=== PATIENT | male | born 1970 | race Caucasian/White ===

== ENCOUNTER 2017-02-17 13:34 | Inpatient (IN) | payer OTHER ==
[~2017-02-17] VITALS: Ht 195.6 cm; Wt 150.9 kg
--- NOTE | 2017-02-17 13:50 | NUR ---
dr mckeon in with pt
[2017-02-17] MEDS ORDERED: ONDANSETRON 4mg/2ml INJECTION IV ONE (14:00)
[2017-02-17] MEDS ORDERED: NORMAL SALINE 1,000 ML IV ONE (14:00)
[2017-02-17] MEDS ORDERED: HYDROMORPHONE 2mg/ml INJECTION IV ONE (14:00)
--- NOTE | 2017-02-17 14:00 | ERPDOC ---
Departure Disposition Decision Date: February 17, 2017 Disposition Decision Time: 15:22 Disposition: 02 TO [facility] Impression Impression Impression: Primary Impression: Acute pancreatitis Pancreatitis type: unspecified pancreatitis type Acute pancreatitis complication: no infection or necrosis Qualified Codes: K85.90 - Acute pancreatitis without necrosis or infection, unspecified Severity: Moderate Condition: Stable Seen By: Physician only Referrals: KRYSTYNA JOHNSON DO (Family) Problems/Meds/Labs Reviewed?: Yes Medications reviewed and manag: Yes Follow up care ordered?: Yes Mental Status: Alert, Oriented HPI - Abdominal Pain General Chief Complaint: Abdominal Pain Stated Complaint: PANCREATIS Time Seen by Provider: 13:46 Source: patient, family History/Exam Limitations: no limitations HPI - Abdominal Pain Initial Comments Patient is a 46-year-old male presents emergency room for evaluation of a 2 day history of abdominal pain. Patient's pain is slowly been worsening, worse and especially last night after eating however patient's been having no fevers no chills nausea no vomiting. Patient did go to primary medical physician's office today who sent him in for laboratories patient was found have an elevated lipase at 578, white count 14.3 with shift at 77% however bands normal at 2%. Due to his symptomatology primary care medic physician recommended patient go to the ER for evaluation of pancreatitis versus gallstone pancreatitis versus diverticulitis. Occurred At: home Onset: Rapid Duration: other (2 days) Pain Scale: Now & Worst: 8/10 Location: epigastric, periumbilical Radiation: no radiation Allergies: Coded Allergies: codeine (Verified Adverse Reaction, Unknown, vomiting, 02/17/17) Past History Past Medical History Metabolic: diabetes, DENIES: hypercholesterolemia, hypertension, hypothyroidism ENMT: DENIES: allergies Cardiac: DENIES: A-fib, CAD, CHF Respiratory: DENIES: COPD, asthma GI: DENIES: GERD, constipation, ulcers Male: DENIES: UTI Hematologic: DENIES: anemia Surgical History General: DENIES: appendix, gallbladder, hernia Social History Smoking Status: Never smoker Substance Use Type: does not use Alcohol Intake: occasionally (once every 2-3 months) Marital Status: Sexuality: female partner Housing: house Review of Systems Constitutional Constitutional: appetite decrease, DENIES: chills, dizziness, fever, weakness Eyes Vision: DENIES: double vision, loss of visual strickland ENMT Sinuses: DENIES: congestion, rhinorrhea Mouth/Throat: DENIES: scratchy throat, sore throat Cardiovascular Cardiac: DENIES: chest pain, dyspnea on exertion Pulmonary Respiratory: DENIES: cough, dyspnea, sputum, tachypnea GI Upper Abdomen: nausea, pain, DENIES: vomiting Lower Abdomen: pain, DENIES: constipation, diarrhea Musculoskeletal General: DENIES: cramps, pain, weakness Integumentary Skin: DENIES: color change, itching, rash Endocrine Endocrine: DENIES: heat/cold intolerance Hematologic/Lymphatic Hematologic/Lymphatic: DENIES: anemia Physical Exam General General Nourishment: well nourished, well developed General Body Habitus: well groomed Vitals and Pain First Documented Vital Signs Date Time Temp Pulse Resp B/P Pulse Ox O2 Delivery O2 Flow Rate FiO2 02/17/17 13:40 98.1 88 20 128/66 98 Weight: Kilograms: Height (feet): Height (inches): Triage Pain Scale: RN VS reviewed by Provider: Yes Eyes (brief) Eyes Brief: found: PERRL ENMT (brief) ENMT Brief: FOUND: mucosa moist, normal dentition, NOT FOUND: nasal erythema, pharnyx erythema, tonsillar deviation Neck (brief) Neck: NOT FOUND: adenopathy, spasm, tenderness Respiratory (brief) Respiratory: FOUND: clear all strickland, equal bilaterally, NOT FOUND: rales, wheezes Cardiovascular (brief) Cardiac: FOUND: regular rate, regular rhythm Capillary Refill: <2 sec Abdomen Palpation: FOUND: soft, tender (epigastric and periumbilical tenderness), NOT FOUND: Obturator sign, Psoas sign, hepatomegaly, involuntary guarding, pulsating mass, rebound, splenomegaly, voluntary guarding Auscultation: FOUND: normoactive Lymphatic (brief) Lymphatic Brief: NOT FOUND: adenopathy Musculoskeletal (brief) Musculoskeletal Brief: NOT FOUND: spasm, tenderness Integumentary (brief) Integumentary Brief: FOUND: dry, pink, warm, NOT FOUND: rash Neurologic (brief) Neurological Brief: FOUND: CN w/o gross def to obs, motor-no gross deficits, sensory-no gross deficits Psychiatric (brief) Psychiatric Brief: FOUND: alert, oriented Differential Diagnoses Considering: Appendicitis, Aortic Dissection, Biliary Colic, Bowel Obstruction , Cholecystitis, Constipation, Diverticulitis, Gastroenteritis, GERD, Hepatitis , Hernia, IBS, Ileus, Pancreatitis, Pneumonia, Pyelonephritis, Renal Colic, Ulcer, Ulcerative Colitis, UTI, Volvulus Progress Results/Orders Orders Procedure Category Date Status Time Iv Lock (Ed Only) EDM 02/17/17 Transmitted 13:46 Normal Saline (Normal PHA 02/17/17 Complete Saline Iv) 14:00 Hydromorphone PHA 02/17/17 Complete (Dilaudid) 14:00 Ondansetron Inj PHA 02/17/17 Complete (Zofran) 14:00 Ua, Dip Wreflex LAB 02/17/17 Logged Microsc & Dock Hand 13:56 Ct Abd/Pelvis CT 02/17/17 Resulted W/Contrast Only 13:58 Iohexol (Omnipaque) PHA 02/17/17 Complete 14:11 Normal Saline (Ns) PHA 02/17/17 Complete 14:11 Saline Flush (Iv PHA 02/17/17 Complete Flush) 14:11 Place In Facility: ED ADM 02/17/17 Transmitted 15:21 Medications Current ED Medications Sodium Chloride (Normal Saline IV) 1,000 ml @ 999 mls/hr Q1H1M ONCE IV Last administered on 02/17/17 14:12; Start 02/17/17 at 14:00; Stop 02/17/17 at 15:00; Status DC Hydromorphone HCl (Dilaudid) 0.5 mg O ONCE IV Last administered on 02/17/17 14 :12; Start 02/17/17 at 14:00; Stop 02/17/17 at 14:01; Status DC Ondansetron HCl (Zofran) 4 mg O ONCE IV Last administered on 02/17/17 14:09; Start 02/17/17 at 14:00; Stop 02/17/17 at 14:01; Status DC Iohexol 1 bottle 1 bottle STK-MED ONCE .ROUTE ; Start 02/17/17 at 14:11; Stop 02/17/17 at 14:12; Status DC Sodium Chloride (NS) 100 ml @ As Directed STK-MED ONCE .ROUTE ; Start 02/17/17 at 14:11; Stop 02/17/17 at 14:12; Status DC Sodium Chloride (Iv Flush) 10 ml STK-MED ONCE .ROUTE ; Start 02/17/17 at 14:11; Stop 5/3/17 at 14:12; Status DC Progress Progress Discuss case with hospitalist service and they will admit for acute pancreatitis CT CT : CT: Abd/Pelvis IV contrast Interpretation: Abnormal, Discussed w/ Radiologist (acute pancreatitis with no signs of necrosis or pseudocyst, gallbladder normal), Reviewed Written Report CALLIE SAVAGE MD February 17, 2017 14:00
[2017-02-17] MEDS ORDERED: NORMAL SALINE 100 ML ONE (14:11)
[2017-02-17] MEDS ORDERED: IOHEXOL 300 MG/ML 100ml INJECTION ONE (14:11)
[2017-02-17] MEDS ORDERED: SALINE FLUSH 10ml SYRINGE ONE (14:11)
--- NOTE | 2017-02-17 15:08 | DI ---
Indication: ITS.REASON: abd pain, Elevated lip, T Temo PROCEDURE: CT ABD/PELVIS W/CONTRAST ONLY: Encounter: Initial Comparison: None Technique: Axial CT images were performed through the abdomen and pelvis after the administration of intravenous contrast. Coronal and sagittal two-dimensional reformats. Automated Exposure Control and Iterative Reconstruction dose reducing techniques were utilized. Contrast: Omnipaque 300 99 mL Findings: The lung bases are clear. Liver is diffusely fatty infiltrated without enhancing mass or bile duct dilatation. The gallbladder appears normal. The spleen is within normal limits. There is inflammation surrounding the pancreatic body and tail with fat stranding present. No focal fluid collection to suggest a pseudocyst. No nonenhancing pancreatic tissue to suggest pancreatic necrosis. Right adrenal calcifications could be due to old trauma, infection or hemorrhage. The left adrenal gland is normal. Kidneys are normal. No abdominal or pelvic lymphadenopathy. Bladder appears normal. Prostate and rectum are unremarkable. No free fluid. No evidence of a bowel obstruction. The appendix is normal. Bone windows are normal for age. Impression: 1. Acute pancreatitis. 2. Hepatic steatosis. .
--- NOTE | 2017-02-17 15:48 | NUR ---
REPORT TO BRUCE BRONW ON [facility]. ROOM 164
--- NOTE | 2017-02-17 15:50 | NUR ---
PHYSICIAN DR VALLES IN WITH PT
[2017-02-17 15:56] LABS: BLOOD, URINE 1+ (NEGATIVE); COLOR,URINE YELLOW (YELLOW); LEUKOCYTE ESTERASE ,URINE NEGATIVE (NEGATIVE); NITRITE,URINE NEGATIVE (NEGATIVE); UROBILINOGEN,URINE 0.2 EU/DL (NORMAL)
[2017-02-17 16:06] LABS: WBC,URINE NONE SEEN /HPF (0-5)
[2017-02-17 16:07] LABS: BACTERIA,URINE NONE SEEN (NEGATIVE); MUCUS,URINE PRESENT; SQUAMOUS EPITHELIAL CELL,UR 0-5
[2017-02-17 16:09] VITALS: Ht 195.6 cm; Wt 150.9 kg
[2017-02-17 16:12] VITALS: BP 147/86; PULSE 86; RESP 18; TEMP 98.8; O2SAT 97
--- NOTE | 2017-02-17 16:58 | HPPDOC ---
SAY TAYLOR V ONE PIECE EXPANSION MAKER HAND 02/17/17 1655: HPI - Adult Date DATE: 02/17/17 TIME: 16:44 General Chief Complaint: Abdominal pain History of Present Illness Mr Perkins is a 46 yr old male who had a onset of abdominal pain 2 days ago. Pain has continued to worsen and was especially worse last night following eating pizza. He presented to his primary care provider, Dr. Rainey today for acute evaluation. At that time he was sent to [facility] for outpatient laboratory studies. He was found to be elevated at 14.8, hemoglobin 15.9, hematocrit 45.3, platelet count 222, neutrophils 77% with 2% bandemia. Sodium was found to be normal at 138, potassium 4.1, BUNs 10, creatinine 0.8. Lipase is elevated at 578. Patient then checked into the emergency room for further acute evaluation. A urinalysis was obtained showing 2+ protein, 2+ glucose, 3+ ketones, 1+ blood, 1+ bilirubin . A CT scan of the abdomen was obtained showing acute pancreatitis with hepatic steatosis. Patient was given IV fluids, and Dilaudid and Zofran for pain control. The hospitalist services were consulted and accepted patient for outpatient admission for further evaluation and treatment. Is expected that his stay will be less than 2 overnights. Past Medical History Past Medical History Type 2 DM Surgical History Patient's Surgical History: Tonsil and adenoidectomy Right ankle tendon reconstruction Current Medications Home Meds Reported Medications Fenofibrate (Fenofibrate) 160 Mg Tablet, 160 MG PO DAILY 02/17/17 Insulin Degludec (Tresiba Flextouch U-200) 200 Unit/1 Ml Insuln.pen, 42 SQ DAILY 02/17/17 Losartan Potassium (Losartan Potassium) 25 Mg Tablet, 25 MG PO DAILY 02/17/17 Atorvastatin Calcium (Atorvastatin Calcium) 20 Mg Tablet, 1 TAB PO HS, TAB 02/17/17 Liraglutide (Victoza 2-Roosevelt) 18 Mg/Syringe Inj, 1.8 MG SQ DAILY 02/17/17 Metformin HCl (Metformin HCl ER) 500 Mg Tab.er.24, 2 TAB PO BID, #90 TAB 3 Refills 02/17/17 Allergies: Coded Allergies: codeine (Verified Adverse Reaction, Unknown, vomiting, 02/17/17) Family History Family History: Father alive and well mother-diabetes Social History Smoking Status: Never smoker Substance Use Type: does not use Alcohol Intake: occasionally (once every 2-3 months) Marital Status: Sexuality: female partner Housing: house Advance Directives: No DPOA for Healthcare Only Social History Comments Primary care provider, Dr. Lee Review of Systems GI Upper Abdomen: pain (generalized abdominal pain) All Other Systems All Other Systems: Reviewed (remainder of 10-point ROS Neg.) Physical Exam General General Nourishment: well nourished, well developed Vital Signs Vital Signs Date Time Temp Pulse Resp B/P Pulse Ox O2 Delivery O2 Flow Rate FiO2 02/17/17 16:12 98.8 86 18 147/86 97 Room Air Height (Feet): 6 Height (Inches): 5.00 Eyes Brief: FOUND: EOMI, PERRL ENMT Brief: FOUND: mucosa moist, normal dentition, NOT FOUND: pharnyx erythema Respiratory Brief: FOUND: clear all strickland, equal bilaterally, NOT FOUND: wheezes Cardiovascular (brief) Cardiac Brief: FOUND: regular rate, regular rhythm, NOT FOUND: murmur, pedal edema Abdomen (brief) Abdominal Brief: FOUND: soft, tender (generalized), NOT FOUND: BS normo active x4 (hypoactive) Integumentary (brief) Integumentary Brief: FOUND: dry, pink, warm Neurologic (brief) Neurological Brief: FOUND: cranial 2-12 intact Neurologic RN Documented GCS Eye Opening: Verbal: Motor: Total: Psychiatric (brief) FOUND: alert, attentive, normal affect, oriented Laboratory Laboratory Tests Test 02/17/17 15:33 Urine Collection Type Voided-not cc-midstr Urine Color Yellow Urine Turbidity Clear Urine pH 5.0 Urine Specific Thurston 1.028 Urine Protein 2+ Urine Glucose (UA) 2+ Urine Ketones 3+ Urine Blood 1+ Urine Nitrite Negative Urine Bilirubin 1+ Urine Urobilinogen 0.2EU/DL Urine Leukocyte Esterase Negative Urine RBC 1-3/HPF Urine WBC None seen/HPF Urine Squamous Epithelial Cells 0-5 Urine Bacteria None seen Urine Mucus Present Urine Culture Indicated Cult not indicated Assessment & Plan Problems: (1) Acute pancreatitis Status: Acute Qualifiers: Pancreatitis type: unspecified pancreatitis type Acute pancreatitis complication: no infection or necrosis Qualified Codes: K85.90 - Acute pancreatitis without necrosis or infection, unspecified (2) Leukocytosis Status: Acute Assessment & Plan: Present on admission (3) Type 2 diabetes mellitus Status: Chronic Plan/Intensity of Service Admit patient as a outpatient status under the care of Dr Valles on-call hospitalist Will keep patient NPO overnight for gut rest Will obtain Abdominal Ultrasound tomorrow morning He received 1 liter of normal saline while in the ER. Continue with Normal saline at 100 ml/hr for gentle hydration Zofran as needed for nausea Dilaudid as needed for pain control Will monitor Accuchecks 4 times a day. Will start Novalog Sliding scale insulin for hyperglycemia Home medications will need to be evaluated SCDs to bilateral lower ext for DVT prophylaxis He may be up in the room with assistance. Recheck CBC, Lipase and BMP tomorrow morning to follow blood counts renal function and electrolytes Will discuss further plan of care with attending At time of discharge medical care will return to primary care provider, Dr. Lee DVT Prophylaxis: SCD'S Code Status Full Code, unverified Hospital Course Summary Disclaimer The hospital course summary below is not to be considered part of the above Progress Note. Hospital Course Summary Admit patient as a outpatient status under the care of Dr Valles on-call hospitalist Will keep patient NPO overnight for gut rest Will obtain Abdominal Ultrasound tomorrow morning He received 1 liter of normal saline while in the ER. Continue with Normal saline at 100 ml/hr for gentle hydration Zofran as needed for nausea Dilaudid as needed for pain control Will monitor Accuchecks 4 times a day. Will start Novalog Sliding scale insulin for hyperglycemia Home medications will need to be evaluated SCDs to bilateral lower ext for DVT prophylaxis He may be up in the room with assistance. Recheck CBC, Lipase and BMP tomorrow morning to follow blood counts renal function and electrolytes Will discuss further plan of care with attending At time of discharge medical care will return to primary care provider, MARIJA Cota MD 02/17/17 1723: Past Medical History Current Medications Home Meds Reported Medications Fenofibrate (Fenofibrate) 160 Mg Tablet, 160 MG PO DAILY 02/17/17 Insulin Degludec (Tresiba Flextouch U-200) 200 Unit/1 Ml Insuln.pen, 42 SQ DAILY 02/17/17 Losartan Potassium (Losartan Potassium) 25 Mg Tablet, 25 MG PO DAILY 02/17/17 Atorvastatin Calcium (Atorvastatin Calcium) 20 Mg Tablet, 1 TAB PO HS, TAB 02/17/17 Liraglutide (Victoza 2-Roosevelt) 18 Mg/Syringe Inj, 1.8 MG SQ DAILY 02/17/17 Metformin HCl (Metformin HCl ER) 500 Mg Tab.er.24, 2 TAB PO BID, #90 TAB 3 Refills 02/17/17 Allergies: Coded Allergies: codeine (Verified Adverse Reaction, Unknown, vomiting, 02/17/17) Assessment & Plan Assessment Patient seen and examined. Agree with above H+Conchita. SAY TAYLOR APRN February 17, 2017 16:55 MARIJA VALLES MD February 17, 2017 17:23
[2017-02-17] MEDS ORDERED: ONDANSETRON 4mg/2ml INJECTION IV PRN (17:00)
[2017-02-17] MEDS ORDERED: KETOROLAC 30mg/ml INJECTION IV ONE (17:00)
[2017-02-17] MEDS: NORMAL SALINE 1,000 ML IV SCH (17:15)
[2017-02-17] MEDS ORDERED: METF-462 PO (17:16)
[2017-02-17] MEDS ORDERED: LOSA25TA34 PO (17:16)
[2017-02-17] MEDS ORDERED: LIRA0.6P SQ (17:16)
[2017-02-17] MEDS ORDERED: INSU200I4 SQ (17:16)
[2017-02-17] MEDS ORDERED: ATOR20TA59 PO (17:16)
[2017-02-17] MEDS ORDERED: FENO160T12 PO (17:16)
[2017-02-17] MEDS ORDERED: DEXTROSE 50% SYRINGE 50ml (Eq. 1 AMP) IV PRN (17:30)
[2017-02-17 17:45] VITALS: TEMP 99.1
[2017-02-17] MEDS: INSULIN ASPART 100 UNIT/ML SQ PRN ×2 (17:59→22:50)
--- NOTE | 2017-02-17 18:44 | NUR ---
status Medicated with Toradol 30 mg field applications specialist which he stated had helped. remains npo ns @ 100 cc hr,
[2017-02-17 20:45] VITALS: TEMP 98.6
[2017-02-17] MEDS: HYDROMORPHONE 2mg/ml INJECTION IV PRN (22:25)
[2017-02-18] VITALS: BP 139/78; PULSE 82; RESP 20; TEMP 100.6; O2SAT 96
[2017-02-18 00:30] VITALS: BP 131/69; PULSE 79; RESP 16; TEMP 98.4; O2SAT 95
[2017-02-18] MEDS: NORMAL SALINE 1,000 ML IV SCH ×2 (03:05→13:47)
--- NOTE | 2017-02-18 03:07 | NUR ---
O2 Pt c/o QUEVEDO, wears cpap at home, O2 @ 2LNC applied per pt request. Will monitor.
[2017-02-18] MEDS: HYDROMORPHONE 2mg/ml INJECTION IV PRN ×5 (03:52→19:55)
[2017-02-18 05:35] LABS: BASOPHILS % (AUTO) 0.2 % (0-2); EOSINOPHILS % (AUTO) 0.2 % (0-4); HCT - HEMATOCRIT 42.7 % (41-53); HGB - HEMOGLOBIN 14.3 GM/DL (13.5-17.5); IMMATURE GRANULOCYTE # (AUTO) 0.05 T/MM3 (0.00-0.03); IMMATURE GRANULOCYTE % (AUTO) 0.4 % (0.0-0.5); LYMPHOCYTES # (AUTO) 1.2 T/MM3 (1-4.8); LYMPHOCYTES % (AUTO) 9.2 % (23-45); MEAN CORPUSCULAR HGB 29.9 UUG (26-34); MEAN CORPUSCULAR HGB CONC(MCHC 33.5 GM/DL (31-37); MEAN CORPUSCULAR VOLUME 89.1 UM3 (80-100); MEAN PLATELET VOLUME 10.4 UM3 (9.4-12.4); MONOCYTES # (AUTO) 0.9 T/MM3 (0-0.8); MONOCYTES % (AUTO) 7.1 % (0-9.0); NEUTROPHILS #(AUTO)-ABSOLUTE 11.1 T/MM3 (1.8-7.7); NEUTROPHILS % (AUTO) 82.9 % (33-66); RED BLOOD COUNT 4.79 M/MM3 (4.50-5.90); WBC - WHITE BLOOD COUNT 13.3 T/MM3 (4.5-11.0)
--- NOTE | 2017-02-18 05:45 | NUR ---
Status Pt awake most of the night. Dilaudid for abd pain x2. Rates pain 2-3 but appears to be much worse, educated on pain scale- states understanding. SBA to BR, NPO, NS infusing @ 100ml/hr. Swabs for comfort/oral care. SCD's in place. Awaiting abd ultrasound this am. VSS on RA.
[2017-02-18 06:05] LABS: CALCIUM 8.3 MG/DL (8.4-10.2); CREATININE 0.8 MG/DL (0.8-1.5); POTASSIUM 4.7 MEQ/L (3.6-5)
[2017-02-18] MEDS: INSULIN ASPART 100 UNIT/ML SQ PRN ×4 (06:36→21:48)
[2017-02-18 07:50] VITALS: BP 138/87; PULSE 81; RESP 18; TEMP 97.7; O2SAT 99
--- NOTE | 2017-02-18 08:54 | PNPDOC ---
Subjective Date DATE: 02/18/17 TIME: 08:48 Subjective Patient states that he has continued pain in the abdomen overnight. A few episodes of nausea relieved with antiemetics. No diarrhea. States he would like to try ice chips. Objective Vital Signs Vital signs Vital Signs Date Time Temp Pulse Resp B/P Pulse Ox O2 Delivery O2 Flow Rate FiO2 02/18/17 07:53 20 02/18/17 07:50 97.7 81 138/87 99 Room Air Height (Feet): 6 Height (Inches): 5.00 Weight (Kilograms): 151.000 General Comments General -AAO 3; NAD CV - RRR Lungs - CTAB Abdomen - diffusely tender Extremities - no E/C/C Neuro--nonfocal Laboratory Laboratory Laboratory Tests 02/17/17 12:14 02/18/17 04:52 Laboratory Tests 02/18/17 04:52 Assessment & Plan Problems: (1) Acute pancreatitis Status: Acute Qualifiers: Pancreatitis type: unspecified pancreatitis type Acute pancreatitis complication: no infection or necrosis Qualified Codes: K85.90 - Acute pancreatitis without necrosis or infection, unspecified Assessment & Plan: Clinically unchanged. Lipase has skyrocketed. We will continue with antibiotics and pain medication. Will continue IV fluids. Very slowly advance diet as tolerated. (2) Leukocytosis Status: Acute Assessment & Plan: Improving. Likely secondary to acute pancreatitis. (3) Type 2 diabetes mellitus Status: Chronic Assessment & Plan: Uncontrolled secondary to medication noncompliance. Continue sliding scale. Plan/Intensity of Service Code Status Full Code, unverified Hospital Course Summary Disclaimer The hospital course summary below is not to be considered part of the above Progress Note. Hospital Course Summary MARIJA VALLES MD February 18, 2017 08:51
--- NOTE | 2017-02-18 08:57 | DI ---
Indication: ITS.REASON: abd pain PROCEDURE: US ABDOMEN LIMITED: Encounter: Initial Comparison: CT abdomen and pelvis dated February 17, 2017 Technique: Grayscale and color Doppler sonographic imaging of the right upper quadrant of the abdomen was performed. Findings: Hepatic parenchyma is echogenic and sonographically dense without evidence for focal mass. The gallbladder is normal. There is no wall thickening, pericholecystic fluid, sonographic Barrera's sign or cholelithiasis. Both the intra and extrahepatic biliary system are of normal caliber with the common duct measuring 3 mm in dimension. Pancreas could not be seen due to shadowing bowel gas. The right kidney is present without collecting system dilatation. The right kidney measures 12.7 cm in length. Impression: Normal gallbladder. Hepatic steatosis. .
--- NOTE | 2017-02-18 10:40 | NUR ---
CHANDANA CM VISITED PT AND SPOUSE. CM EXPLAINED ROLE AND PROVIDED CONTACT INFORMATION. PT PLANS [place] [facility] [place] DENIES NEEDS. PT IS AWARE TO CONTACT CM IF NEEDS ARISE.
--- NOTE | 2017-02-18 14:09 | NUR ---
DM Screen Diet: NPO Based on Isiah Xiong, with an Activity factor or 1.3 and an injury factory of 1.0 calorie needs are ~2600 When diet advances, international logistics analyst recommends advancing diet to CC 2600 Patient states he's had diabetes for 3 years and the only thing he does to manage it is take his diabetes meds. Patient states it's hard to eat a low-carb diet with his busy work schedule and home life. He states he doesn't test his BS because of his disdain for needles and cost. engineer internship spent most of the visit speaking with the patient's who also has diabetes. The patient's states she and the patient know how to manage blood sugars, but simply aren't committed at this point in time. She does feel like this particular hospital visit serves as a "wake-up" call and motivation to move forward with healthy behaviors that are conducive to successful diabetes management. Patient and felt they didn't need any further diabetes education. Cardiopulmonary Technologist Chief left "Healthy Eating 1,2,3" hand-out with patient and . RD contact information was provided. RD Available @ [phone] Addendum: 02/18/17 at [address] Student charting reviewed by Toll Service Observer.
[2017-02-18 16:02] VITALS: BP 116/75; PULSE 85; RESP 18; TEMP 96.1; O2SAT 97
[2017-02-18 16:48] VITALS: PULSE 85; RESP 18; O2SAT 97
--- NOTE | 2017-02-18 18:23 | NUR ---
shift status Medicated x2 for co of abd pain which has moved to lower abd. ss insulin given for bgms. taking ice chips very well without n/v lab results reviewed with pt and pt education given about pancreatitis and causes of it .States it was a wake up call re self care .urine still is light julio colored. continue to observe did pass a little flatus,
--- NOTE | 2017-02-18 19:55 | NUR ---
PAIN: PT REQUESTED DILAUDID UPPER ABDOMINAL PAIN. WILL CONTINUE TO MONITOR.
[2017-02-19 00:02] VITALS: BP 139/78; PULSE 82; RESP 20; TEMP 100.6; O2SAT 98
--- NOTE | 2017-02-19 00:27 | NUR ---
FEVER: MIDNIGHT VITALS TAKEN, PT'S TEMP WAS 100.6. PT NPO, NO PRN TYLENOL. SENT TIGER TEXT, REC'D CALL BACK FROM DR. GREGORY. DOCTOR ORDERING TYLENOL, PT HAS BEEN ON CHIPS AND MOVING TO CLEAR LIQUIDS IN THE MORNING; PT SAID HE WAITS SOMETIMES FOR ICE TO MELT SO THAT HE CAN DRINK THE LIQUID (KEEPS MELTED CHIPS DOWN, NO EMESIS OR DISCOMFORT). WILL ADMINISTER TYLENOL (SEE EMAR).
[2017-02-19] MEDS: NORMAL SALINE 1,000 ML IV SCH ×4 (00:53→22:26)
--- NOTE | 2017-02-19 01:00 | NUR ---
FEVER: AFTER RECEIVING VERBAL ORDER FOR TYLENOL AND PUTTING IN VERBAL PRN ORDER FROM DR. GREGORY, I TOOK PT'S TEMPERATURE. PT'S TEMP WAS NOW 98.3 F. DID NOT ADMINISTER TYLENOL.
[2017-02-19] MEDS ORDERED: ACETAMINOPHEN 500 MG TABLET PO PRN (01:15)
[2017-02-19 01:22] VITALS: TEMP 98.3
[2017-02-19] MEDS: HYDROMORPHONE 2mg/ml INJECTION IV PRN ×3 (01:27→17:17)
--- NOTE | 2017-02-19 01:30 | NUR ---
PAIN: PT REQUESTED DILAUDID ABDOMINAL PAIN, ADMINISTERED DILAUDID 0.5 MG. WILL CONTINUE TO MONITOR.
--- NOTE | 2017-02-19 04:45 | NUR ---
SHIFT STATUS: PT SLEPT WELL DURING THE NIGHT, IS FRIENDLY AND COOPERATIVE, AND LIKES HIS ROOM COLD AND DARK WHILE SLEEPING; PT IS NPO, EXCEPT FOR CHIPS; MEDICATED (DILAUDID) 2X FOR ABDOMINAL PAIN, WHICH MOVED TO LOWER ABDOMEN; PT DENIES SOA, CHEST PAIN, OR N/V; PT IS UP AT RADHA; FLUIDS RUNNING (NORMAL SALINE); PT BURPS OFTEN; HAD A FEVER AT MIDNIGHT WHEN VITALS WERE TAKEN (SEE PREVIOUS NURSE NOTES). CALL LIGHT WITHIN REACH, HOURLY ROUNDING.
[2017-02-19 05:32] LABS: HCT - HEMATOCRIT 41.2 % (41-53); HGB - HEMOGLOBIN 13.5 GM/DL (13.5-17.5); MEAN CORPUSCULAR HGB 29.3 UUG (26-34); MEAN CORPUSCULAR HGB CONC(MCHC 32.8 GM/DL (31-37); MEAN CORPUSCULAR VOLUME 89.6 UM3 (80-100); WBC - WHITE BLOOD COUNT 14.3 T/MM3 (4.5-11.0)
[2017-02-19 05:40] LABS: ANION GAP 23 MEQ/L (5-15); BUN/CREATININE RATIO 20 RATIO (6-26); CALCIUM 9.6 MG/DL (8.4-10.2); CHLORIDE 106 MEQ/L (98-107); CO2 - CARBON DIOXIDE 11 MEQ/L (22-30); CREATININE 0.9 MG/DL (0.8-1.5); GLOMERULAR FILTRATION RATE 91; GLUCOSE 299 MG/DL (75-110); MAGNESIUM 2.2 MG/DL (1.6-2.3); POTASSIUM 4.3 MEQ/L (3.6-5); SODIUM 140 MEQ/L (134-144)
[2017-02-19 06:00] LABS: LIPASE 696 U/L (23-300)
[2017-02-19] MEDS: INSULIN ASPART 100 UNIT/ML SQ PRN ×3 (06:06→17:14)
[2017-02-19 06:27] LABS: BAND NEUTROPHILS # 0.4 T/MM3; LYMPHOCYTES # (MANUAL) 1.3 T/MM3 (1-4.8); NEUTROPHILS #(MANUAL)-ABSOLUTE 11.6 T/MM3 (1.8-7.7); TOTAL CELLS COUNTED 100 %
[2017-02-19 06:28] LABS: POIKILOCYTOSIS 1+; TEAR DROP CELLS 1+
[2017-02-19 07:36] VITALS: BP 146/69; PULSE 70; RESP 18; TEMP 98.5; O2SAT 99
--- NOTE | 2017-02-19 11:22 | PNPDOC ---
Subjective Date DATE: 02/19/17 TIME: 11:18 Subjective No events overnight. Patient states he still experiences abdominal pain with minimal fluid intake. Hesitant to try more solid food. States pain is fairly well-controlled on current regimen. Objective Vital Signs Vital signs Vital Signs Date Time Temp Pulse Resp B/P Pulse Ox O2 Delivery O2 Flow Rate FiO2 02/19/17 07:36 98.5 70 18 146/69 99 Room Air Height (Feet): 6 Height (Inches): 5.00 Weight (Kilograms): 147.000 General Comments General--he is awake, alert, oriented 3, in no acute distress. HEENT--PERRLA; EOMI Neck.--Supple, no JVD, no bruits. Cardiovascular--regular rate and rhythm. Lungs--clear to auscultation bilaterally Abdomen--benign. Extremities--no edema, cyanosis or clubbing. Neurological--cranial nerves II through XII grossly intact Rectal--deferred. Genitourinary--deferred. Skin--no rashes Laboratory Laboratory Laboratory Tests 02/17/17 12:14 02/18/17 04:52 02/19/17 05:16 Laboratory Tests 02/18/17 04:52 02/19/17 05:16 Assessment & Plan Problems: (1) Acute pancreatitis Status: Acute Qualifiers: Pancreatitis type: unspecified pancreatitis type Acute pancreatitis complication: no infection or necrosis Qualified Codes: K85.90 - Acute pancreatitis without necrosis or infection, unspecified Assessment & Plan: Clinically improved. Lipase much improved. We will continue clear liquid diet for today and IV fluid resuscitation. Advance diet as tolerated starting tomorrow with hopeful discharge in the next 24-48 hours. (2) Leukocytosis Status: Acute Assessment & Plan: Improving. Likely secondary to acute pancreatitis. (3) Type 2 diabetes mellitus Status: Chronic Assessment & Plan: Uncontrolled secondary to medication noncompliance. Hemoglobin A1c greater than 12. Patient has been advised to start taking his medications as an outpatient as ordered. Continue sliding scale. Plan/Intensity of Service Code Status Full Code, unverified Hospital Course Summary Disclaimer The hospital course summary below is not to be considered part of the above Progress Note. Hospital Course Summary MARIJA VALLES MD February 19, 2017 11:21
--- NOTE | 2017-02-19 12:30 | NUR ---
Comfort Patient was given Dilaudid for abdominal pain/discomfort. Patient currently sleeping.
--- NOTE | 2017-02-19 13:14 | NUR ---
Glycemic control A1c: 12.6; Home insulin: Treshiba U-200, 42 units daily. Diet: Clear Liquid; Patient was NPO past two days, and was advanced to today r/t medical condition. It is unlikely that diet is contributing to his hyperglycemia. SS insulin was ordered 02/17. Basal insulin is ordered, per nsg.
[2017-02-19 15:55] VITALS: BP 141/74; PULSE 66; RESP 20; TEMP 98.2; O2SAT 99
--- NOTE | 2017-02-19 16:44 | NUR ---
Status Patient has complained of being tired today. Encouraged patient to turn on lights and get up to ambulate. Encouraged to walk in halls. Denies nausea. Tolerating clear liqs. Breathing comfortably on RA.
[2017-02-19 19:43] VITALS: BP 140/72; PULSE 66; RESP 18; TEMP 98.7; O2SAT 98
[2017-02-19] MEDS ORDERED: INSULIN GLARGINE 100 UNIT/ML SQ SCH (22:00)
[2017-02-20 00:19] VITALS: BP 124/65; PULSE 59; RESP 18; TEMP 99.5; O2SAT 97
[2017-02-20 05:48] LABS: MEAN CORPUSCULAR HGB 28.9 UUG (26-34); MEAN CORPUSCULAR HGB CONC(MCHC 32.4 GM/DL (31-37); MEAN CORPUSCULAR VOLUME 89.2 UM3 (80-100); MEAN PLATELET VOLUME 10.3 UM3 (9.4-12.4); RED BLOOD COUNT 4.15 M/MM3 (4.50-5.90); WBC - WHITE BLOOD COUNT 11.1 T/MM3 (4.5-11.0)
[2017-02-20 05:57] LABS: ANION GAP 18 MEQ/L (5-15); BUN/CREATININE RATIO 19 RATIO (6-26); CALCIUM 9.5 MG/DL (8.4-10.2); CHLORIDE 104 MEQ/L (98-107); CO2 - CARBON DIOXIDE 16 MEQ/L (22-30); CREATININE 0.8 MG/DL (0.8-1.5); GLOMERULAR FILTRATION RATE 105; GLUCOSE 264 MG/DL (75-110); LIPASE 278 U/L (23-300); MAGNESIUM 2.1 MG/DL (1.6-2.3); POTASSIUM 3.6 MEQ/L (3.6-5); SODIUM 138 MEQ/L (134-144)
[2017-02-20 06:17] LABS: BAND NEUTROPHILS # 1.3 T/MM3; EOSINOPHILS # (MANUAL) 0.6 T/MM3 (0-0.5); LYMPHOCYTES # (MANUAL) 1.2 T/MM3 (1-4.8); MONOCYTES # (MANUAL) 0.6 T/MM3 (0-0.8); NEUTROPHILS #(MANUAL)-ABSOLUTE 7.4 T/MM3 (1.8-7.7); TOTAL CELLS COUNTED 100 %
--- NOTE | 2017-02-20 07:22 | NUR ---
SUMMARY PT SLEPT WELL THIS SHIFT. ALERT AND ORIENTED X3. ABLE TO VOICE NEEDS TO THE STAFFS. DENIED ANY PAIN. PT STAYED IN THE ROOM ALL NIGHT. ENCOURAGED TO AMBULATE. HE SAID HE IS DOING FINE IN HIS ROOM. DIET ADVANCED THIS MORNING. UP AD RADHA IN ROOM TO THE BATHROOM.
[2017-02-20 07:31] VITALS: BP 140/68; PULSE 65; RESP 24; TEMP 97.9; O2SAT 99
[2017-02-20] MEDS ORDERED: INSULIN DEGLUDEC SQ SCH (09:00)
--- NOTE | 2017-02-20 10:47 | PD.WORK ---
Work Release DATE: 02/20/17 TIME: 10:46 Work Release Excused for: Medical illness May return to work on: February 23, 2017 Restrictions: None May resume normal activity on: February 23, 2017 SAY TAYLOR APRN February 20, 2017 10:47
[2017-02-20] MEDS: INSULIN ASPART 100 UNIT/ML SQ PRN (10:54)
--- NOTE | 2017-02-20 11:15 | NUR ---
Discharge Patient discharged to home. Instructions gone over with patient and , questions answered. IV dc'd, cath intact. Work release sent with patient.
== END 2017-02-20 11:20 | disposition home or self-care (01) | DRG 440 ==
LOC: ED 13:34 → EDHOLD 15:21 → INTOOBSV 15:21 → OBSVTOIN 15:21 → MED 16:04 → OBSVTOIN 02-18 14:01
PROVIDERS: ADMIT Internal Medicine; ATTEND Internal Medicine
DX: K85.90 Acute pancreatitis without necrosis or infection, unspecified (principal); D72.829 Elevated white blood cell count, unspecified; E11.65 Type 2 diabetes mellitus with hyperglycemia; Z79.4 Long term (current) use of insulin
CPT/HCPCS: 36415; 80048; 81001; 82948; 83036; 83690; 83735; 85007; 85025; 85027; 96361; 96372; 96374; 96375; 99218

== ENCOUNTER → 2017-02-17 | Outpatient (CLI) | payer OTHER ==
[~2017-02-17] MED LIST: ATOR20TA59 PO; FENO160T12 PO; HYDROMORPHONE 2mg/ml INJECTION IV PRN; INSU200I4 SQ; LIRA0.6P SQ; LOSA25TA34 PO; METF-462 PO; METOCLOPRAMIDE 10mg/2ml INJECTION IV PRN; NORMAL SALINE 1,000 ML IV SCH; ONDANSETRON 4mg/2ml INJECTION IV PRN
[2017-02-17 12:17] LABS: HCT - HEMATOCRIT 45.3 % (41-53); HGB - HEMOGLOBIN 15.9 GM/DL (13.5-17.5); MEAN CORPUSCULAR HGB 30.6 UUG (26-34); MEAN CORPUSCULAR HGB CONC(MCHC 35.1 GM/DL (31-37); MEAN CORPUSCULAR VOLUME 87.1 UM3 (80-100); MEAN PLATELET VOLUME 9.9 UM3 (9.4-12.4); WBC - WHITE BLOOD COUNT 14.8 T/MM3 (4.5-11.0)
[2017-02-17 12:29] LABS: ALBUMIN/GLOBULIN RATIO 0.9 RATIO (1.1-2.2); ALKALINE PHOSPHATASE 98 U/L (38-126); ALT (SGPT) 58 U/L (21-72); ANION GAP 30 MEQ/L (5-15); AST (SGOT) 18 U/L (17-59); BUN/CREATININE RATIO 13 RATIO (6-26); CALCIUM 9.3 MG/DL (8.4-10.2); CHLORIDE 98 MEQ/L (98-107); CO2 - CARBON DIOXIDE 10 MEQ/L (22-30); CREATININE 0.8 MG/DL (0.8-1.5); GLOMERULAR FILTRATION RATE 105; GLUCOSE 283 MG/DL (75-110); LIPASE 578 U/L (23-300); POTASSIUM 4.1 MEQ/L (3.6-5); SODIUM 138 MEQ/L (134-144); TOTAL PROTEIN 8.3 G/DL (6.3-8.2)
[2017-02-17 12:39] LABS: BAND NEUTROPHILS # 0.3 T/MM3; BASOPHILS # (MANUAL) 0.1 T/MM3 (0-0.2); EOSINOPHILS # (MANUAL) 0.3 T/MM3 (0-0.5); LYMPHOCYTES # (MANUAL) 1.6 T/MM3 (1-4.8); NEUTROPHILS #(MANUAL)-ABSOLUTE 11.4 T/MM3 (1.8-7.7); TOTAL CELLS COUNTED 100 %
== END ==
LOC: IMA 12:05
PROVIDERS: ATTEND Family Medicine
DX: R10.9 Unspecified abdominal pain (principal)
CPT/HCPCS: 36415; 80053; 82150; 83690; 85025; J7030

== ENCOUNTER 2017-11-05 09:23 | Inpatient (IN) ==
--- NOTE | 2017-11-05 09:36 | Emergency Department Report ---
General Adult HPI - General Stated complaint: pancratitis Time Seen by Provider: 11/05/17 09:27 Source: patient Mode of arrival: ambulatory Limitations: no limitations - History of Present Illness HPI narrative: 47-year-old male presents to the emergency department with a chief complaint of abdominal pain and medical noncompliance with his diabetic medication regimen. Patient noted onset of abdominal pain "a couple of days ago." Patient has a history of similar symptoms in the past with pancreatitis. Patient stopped taking his diabetic medication 1 month ago in order to try to control his diabetes by diet alone. This was unsuccessful. Patient describes his abdominal pain as moderate. It is dull. No radiation. He does not note any exacerbating or remitting factors. He also noted 2 episodes of nonbloody nonbilious emesis since onset of symptoms. He denies trauma, travel, poorly prepared food or recent antibiotic use. He has no other complaints or associated symptoms at this time. He was at home when the symptoms began. Symptoms have been persistent in nature since onset. - Related Data Home Medications Medication Instructions Recorded Confirmed Atorvastatin [Lipitor] 10 mg PO HS 11/05/17 11/05/17 Fenofibrate [Lofibra] 160 mg PO DAILY 11/05/17 11/05/17 Insulin Degludec [Tresiba 66 unit SQ HS 11/05/17 11/05/17 Flextouch U-200] Losartan Potassium [Cozaar] 25 mg PO DAILY 11/05/17 11/05/17 Metformin [Glucophage] 1,000 mg PO BIDWM 11/05/17 11/05/17 Potassium Chloride [Potassium 10 meq PO DAILY 11/05/17 11/05/17 Chloride] Allergies Allergy/AdvReac Type Severity Reaction Status Date / Time codeine AdvReac Unknown vomiting Verified 11/05/17 09:50 Review of Systems Constitutional: Denies: fever, chills Eyes: Denies: eye pain, vision change ENT: Denies: ear pain, throat pain Cardiovascular: Denies: chest pain, palpitations Respiratory: Denies: cough, dyspnea Gastrointestinal: Reports: abdominal pain, nausea, vomiting. 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 R pinkie/ring finger surgery. Ganglion cyst removed from R knee Family History: Family History Mother Diabetes Maternal Grandfather Cancer - Social History Smoking status: Former smoker Substance use type: does not use Alcohol intake frequency: does not drink Physical Exam - Limitations Limitations: no limitations - General General appearance: alert, in no apparent distress - Normal Exams: Head:: Normocephalic without trauma Eyes:: Pupils are PERRLA w/ EOMI, No scleral icterus, irritation, or foreign bodies noted ENMT:: No facial trauma, nasal exudates, pharyngeal erythema, or exudates are noted Dental: No fractured, loose, or missing teeth noted Neck:: Full range of motion, without adenopathy, JVD, bruits or thyromegaly Chest/Respirations:: Clear all strick[place], with good airflow, and symmetry bilaterally Cardiovascular:: Regular rate and rhythm, without murmur or gallop, Pulses 2+ all extremities, capillary refill, <2 seconds all extremities Abdomen:: Bowel sounds positive (soft. Generalized tenderness to palpation in the epigastric region without rebound or guarding. No CVA tenderness.), non- distended, no hepatosplenomegaly, masses or bruits noted Lymphatic:: No lymphadenopathy, or lymphedema noted Musculoskeletal:: No tenderness, or deformity noted, good range of motion, all extremities Integumentary:: No rashes, hives, or bruising noted, hair and nails, without abnormality Neurological:: Patient is alert, and oriented, cranial nerves, motor/sensory/ cerebellar, exams w/o gross deficits, to observation Psychiatric:: Patient exhibits, appropriate attention, emotion and affect Course Vital Signs Temperature 98 F 11/05/17 09:25 Pulse Rate 88 11/05/17 09:25 Respiratory Rate 20 11/05/17 09:25 Blood Pressure 118/72 11/05/17 09:25 Pulse Oximetry 98 11/05/17 09:25 Temperature 98 F 11/05/17 09:25 Pulse Rate 88 01/19/18 09:25 Respiratory Rate 20 11/05/17 09:25 Blood Pressure 118/72 11/05/17 09:25 Pulse Oximetry 98 11/05/17 09:25 Medical Decision Making - [facility] [place] Narrative Medical decision making narrative: Labs / imaging were discussed in detail with the patient and family and questions are answered. Patient is given 2 L normal saline intravenously. Patient is given parental narcotic and antiemetic medications intravenously with improvement of symptoms in the emergency department. Initiation of insulin drip will be left to the discretion of the accepting physician Dr. Aguiar. Patient is admitted to the service of the hospitalist in improved condition. Patient and family are in agreement with the current plan of management. Patient is admitted to the CCU for further evaluation and treatment in improved condition. No further orders from accepting physician who is in agreement with the current plan of management at this time. - Differential Diagnosis SBO, pancreatitis, UTI, gastritis, hyperglycemia, metabolic disorder - Lab Data Result diagrams: 11/05/17 09:50 11/05/17 13:51 Lab Results 11/05/17 11/05/17 11/05/17 Range/Units 09:50 09:50 09:50 WBC 12.1 H (4.5-11.0) T/MM3 RBC 5.46 (4.50-5.90) M/MM3 Hgb 17.8 H (13.5-17.5) GM/DL Hct 47.0 (41-53) % MCV 86.1 (80-100) UM3 MCH 32.6 (26-34) UUG MCHC 37.9 H (31-37) GM/DL RDW Std Deviation 45.8 (36.9-50.2) FL Plt Count 191 (130-400) T/MM3 MPV 10.1 (9.4-12.4) UM3 Immature Gran % (Auto) Not performed Neut % (Auto) Not performed Lymph % (Auto) Not performed Mason % (Auto) Not performed Eos % (Auto) Not performed Baso % (Auto) Not performed Neut # (Auto) Not performed Lymph # (Auto) Not performed Mason # (Auto) Not performed Eos # (Auto) Not performed Baso # (Auto) Not performed Abs Immat Gran (auto) Not performed Neutrophils % (Manual) 72.0 H (33-66) % Band Neutrophils % 2.0 (0-6) % Lymphocytes % (Manual) 15.0 L (23-45) % Reactive Lymphs % 1.0 H (0-0) % Monocytes % (Manual) 7.0 (0-9.0) % Eosinophils % (Manual) 2.0 (0-4) % Basophils % (Manual) 1.0 (0-2) % Neutrophils # (Manual) 8.7 H (1.8-7.7) T/MM3 Band Neutrophils # 0.2 T/MM3 Lymphocytes # (Manual) 1.8 (1-4.8) T/MM3 Abs React Lymphs (Man) 0.1 H (0-0) T/MM3 Monocytes # (Manual) 0.8 (0-0.8) T/MM3 Eosinophils # (Manual) 0.2 (0-0.5) T/MM3 Basophils # (Manual) 0.1 (0-0.2) T/MM3 RBC Morph Comment Normal Turbidity Not performed Sodium 137 (134-144) MEQ/L Potassium 4.1 (3.6-5) MEQ/L Chloride 100 (98-107) MEQ/L Carbon Dioxide 14 L (22-30) MEQ/L Anion Gap 23 H (5-15) MEQ/L BUN 9.0 (9-20) MG/DL Creatinine 0.7 L (0.8-1.5) MG/DL GFR Calculation 121 BUN/Creatinine Ratio 13 (6-26) RATIO Glucose 270 H (75-110) MG/DL Hemoglobin A1c 12.8 H (4.0-5.7) % Calculated Osmolality 273 (261-280) MOSM/KG Calcium 8.9 (8.4-10.2) MG/DL Total Bilirubin 1.10 (0.20-1.30) MG/DL Icterus Index Not performed AST 18 (17-59) U/L ALT 31 (21-72) U/L Alkaline Phosphatase 110 (38-126) U/L Troponin I < 0.012 (0-0.12) ng/ml Total Protein 8.3 H (6.3-8.2) G/DL Albumin 4.3 (3.5-5.0) G/DL Globulin 4.0 H (2.4-3.6) G/DL Albumin/Globulin Ratio 1.1 (1.1-2.2) RATIO Cholesterol 532 H (132-199) MG/DL HDL Cholesterol 22 L (40-60) MG/DL Cholesterol/HDL Ratio 24.2 H (0-5.0) RATIO Lipase Cancelled Specimen Hemolysis Not performed Ur Collection Type Urine Color (YELLOW) Urine Clarity Urine pH (5.0-8.0) Ur Specific [place] (1.015-1.025) Urine Protein (NEGATIVE) Urine Glucose (UA) (NEGATIVE) Urine Ketones (NEGATIVE) Urine Occult Blood (NEGATIVE) Urine Nitrate (NEGATIVE) Urine Bilirubin (NEGATIVE) Urine Urobilinogen (NORMAL) EU/DL Ur Leukocyte Esterase (NEGATIVE) Urinalysis Comment Specimen Comment Tests Not Done Reason Tests Not Done 11/05/17 11/05/17 11/05/17 Range/Units 10:32 10:43 10:46 WBC (4.5-11.0) T/MM3 RBC (4.50-5.90) M/MM3 Hgb (13.5-17.5) GM/DL Hct (41-53) % MCV (80-100) UM3 MCH (26-34) UUG MCHC (31-37) GM/DL RDW Std Deviation (36.9-50.2) FL Plt Count (130-400) T/MM3 MPV (9.4-12.4) UM3 Immature Gran % (Auto) Neut % (Auto) Lymph % (Auto) Mason % (Auto) Eos % (Auto) Baso % (Auto) Neut # (Auto) Lymph # (Auto) Mason # (Auto) Eos # (Auto) Baso # (Auto) Abs Immat Gran (auto) Neutrophils % (Manual) (33-66) % Band Neutrophils % (0-6) % Lymphocytes % (Manual) (23-45) % Reactive Lymphs % (0-0) % Monocytes % (Manual) (0-9.0) % Eosinophils % (Manual) (0-4) % Basophils % (Manual) (0-2) % Neutrophils # (Manual) (1.8-7.7) T/MM3 Band Neutrophils # T/MM3 Lymphocytes # (Manual) (1-4.8) T/MM3 Abs React Lymphs (Man) (0-0) T/MM3 Monocytes # (Manual) (0-0.8) T/MM3 Eosinophils # (Manual) (0-0.5) T/MM3 Basophils # (Manual) (0-0.2) T/MM3 RBC Morph Comment Turbidity Sodium (134-144) MEQ/L Potassium (3.6-5) MEQ/L Chloride (98-107) MEQ/L Carbon Dioxide (22-30) MEQ/L Anion Gap (5-15) MEQ/L BUN (9-20) MG/DL Creatinine (0.8-1.5) MG/DL GFR Calculation BUN/Creatinine Ratio (6-26) RATIO Glucose (75-110) MG/DL Hemoglobin A1c (4.0-5.7) % Calculated Osmolality (261-280) MOSM/KG Calcium (8.4-10.2) MG/DL Total Bilirubin (0.20-1.30) MG/DL Icterus Index AST (17-59) U/L ALT (21-72) U/L Alkaline Phosphatase (38-126) U/L Troponin I (0-0.12) ng/ml Total Protein (6.3-8.2) G/DL Albumin (3.5-5.0) G/DL Globulin (2.4-3.6) G/DL Albumin/Globulin Ratio (1.1-2.2) RATIO Cholesterol (132-199) MG/DL HDL Cholesterol (40-60) MG/DL Cholesterol/HDL Ratio (0-5.0) RATIO Lipase 5452 H Specimen Hemolysis Ur Collection Type Urine, clean catch Urine Color Yellow (YELLOW) Urine Clarity Clear Urine pH 5.5 (5.0-8.0) Ur Specific [place] >=1.030 H (1.015-1.025) Urine Protein Trace A (NEGATIVE) Urine Glucose (UA) 2+ A (NEGATIVE) Urine Ketones 3+ A (NEGATIVE) Urine Occult Blood Negative (NEGATIVE) Urine Nitrate Negative (NEGATIVE) Urine Bilirubin 1+ A (NEGATIVE) Urine Urobilinogen 0.2 (NORMAL) EU/DL Ur Leukocyte Esterase Negative (NEGATIVE) Urinalysis Comment Microscopic not ind. Specimen Comment Lab to recollect Tests Not Done Lipase Reason Tests Not Done Other - Radiology Data CT ABD/PELVIS: Findings consistent with acute pancreatitis otherwise unremarkable. - EKG Data EKG #1 EKG results narrative: Sinus rhythm. 82 bpm. No STEMI. Disposition Clinical Impression: Hyperglycemia Pancreatitis Qualifiers: Chronicity: acute Pancreatitis type: other Acute pancreatitis complication: unspecified Qualified Code(s): K85.80 - Other acute pancreatitis without necrosis or infection Disposition: 02 To [facility] – [place] Acute Care Condition: Improved Time of Disposition: 11:30 (Admit. Dr. Samuels. ) - Seen By: physician
[2017-11-05] MEDS ORDERED: NS 1,000 ML IV ONE ×3 (09:44→22:11)
[2017-11-05] MEDS ORDERED: ONDANSETRON 4 MG/2 ML INJECTION IVP ONE (09:44)
[2017-11-05] MEDS ORDERED: FentaNYL 100 MCG/2 ML INJECTION IVP ONE ×2 (09:45→12:38)
[2017-11-05] MEDS: SALINE FLUSH 10ml SYRINGE IVF PRN (10:05)
[2017-11-05] MEDS ORDERED: IOHEXOL 300mg/ml 100ml INJECTION ONE (11:11)
[2017-11-05] MEDS ORDERED: SALINE FLUSH 10ml SYRINGE ONE (11:12)
[2017-11-05] MEDS ORDERED: NS 100 ML ONE (11:12)
--- NOTE | 2017-11-05 11:46 | CT Scan Report ---
Indication: abdominal pain PROCEDURE: CT abdomen pelvis w con: Encounter: Initial Comparison: February 17, 2017 Technique: Axial CT images were performed through the abdomen and pelvis after the administration of intravenous contrast. Coronal and sagittal two-dimensional reformats. Automated Exposure Control and Iterative Reconstruction dose reducing techniques were utilized. Contrast: Omnipaque 300 100 mL Findings: The lung bases are clear. The liver is decreased in attenuation consistent with fatty infiltration. No enhancing liver mass or bile duct dilatation. The gallbladder is unremarkable. The spleen is within normal limits. There is inflammatory change and stranding again noted around the pancreatic body and tail without focal fluid collection. The pancreatic parenchyma enhances homogeneously. The adrenal glands are stable. Kidneys are within normal limits. No abdominal or pelvic lymphadenopathy. Bladder is normal. No free fluid or evidence of a bowel obstruction. The appendix is normal. Bone windows show no acute findings. Impression: Acute pancreatitis. .
--- NOTE | 2017-11-05 13:15 | History & Physical Report ---
History of Present Illness Date: 11/05/17 Chief complaint: abdominal pain HPI: Derrell Perkins is a 47 year old male with a history of type 2 DM, HTN, dyslipidemia, and obesity. Dr. Lee has Rx medications for his metabolic conditions, including Metformin, insulin, Losartan, and fenofibrate. He had a bout of pancreatitis in Feb, 2017, which he thought might have been related to Victoza and/or some EtOH intake; but he also reports that he stopped all Rx meds for 2-3 weeks before dx with pancreatitis. Thinking he could make some positive life changes to control his chronic conditions, Derrell stopped all of his Rx medications about 1 month earlier. He hasn't drank EtOH since his last round of pancreatitis. He began feeling sick with abdominal pain after eating breakfast on November 02. Over the next few days, he developed constant periumbilical pain that waxed and waned in severity. It shot straight through to his back. He developed nausea and vomited up bile twice on 11/05/17. He felt hot and feverish and had chills. His states that he wasn't able to sleep. He had one loose stool but denies seeing any blood. His symptoms were consistent to how he felt last February, and he went to [facility] [place] [facility] for evaluation where pancreatitis was confirmed. His lipase was 5,452. WBC was slightly elevated at 12.1; hgb was high at 17.8. Gap was elevated at 23 and bicarb was low at 14. Glucose was 270. A CT scan of his abdomen showed pancreatitis. He was given IV fentanyl, Zofran, and 1L of NS. The hospitalist service was notified and the patient was admitted to the CCU as an inpatient for treatment of both pancreatitis and DKA. LOS is expected to exceed 2 overnights. Review of Systems All systems PM: 10-point ROS was reviewed, no additional remarkable complaints except - Constitutional Constitutional: Present: as per HPI - EETXT Eyes: Absent: change in vision Nose: Absent: obstruction, allergies Mouth/Throat: Absent: sore throat, changes in swallowing - Cardiovascular Cardiovascular: Absent: chest pain, palpitations, dyspnea on exertion, edema Vascular: Absent: pedal edema - Respiratory Respiratory: Absent: cough, dyspnea - Gastrointestinal Gastrointestinal: Present: as per HPI - Genitourinary Genitourinary: Absent: dysuria, hematuria - Musculoskeletal Musculoskeletal: Present: back pain. Absent: muscle weakness - Integumentary/Breasts Integumentary: Absent: rash, wounds - Neurological Neurological: Absent: abnormal gait, dizziness, weakness - Psychiatric Psychiatric: Present: abnormal sleep pattern - Endocrine Endocrine: Absent: palpitations - Hematologic/Lymphatic Hematologic/Lymphatic: Absent: easy bleeding Past Medical History DM type 2 HTN Hyperlipidemia LEON Obesity Surgical History: R ankle reconstruction. R 4th and 5th finger surgery. Ganglion cyst removed from R knee. T&A Family History: Family History Mother Diabetes Maternal Grandfather , Cancer Family History Updates: Mother has diabetes. Father is alive and well. No family history of pancreatitis or GB disease. Derrell does not know medical history of his grandparents. 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 Medications Home Medications Medication Instructions Recorded Confirmed Type Atorvastatin [Lipitor] 10 mg PO HS 11/05/17 11/05/17 History Fenofibrate [Lofibra] 160 mg PO DAILY 11/05/17 11/05/17 History Insulin Degludec [Tresiba 66 unit SQ HS 11/05/17 11/05/17 History Flextouch U-200] Losartan Potassium [Cozaar] 25 mg PO DAILY 11/05/17 11/05/17 History Metformin [Glucophage] 1,000 mg PO BIDWM 11/05/17 11/05/17 History Potassium Chloride [Potassium 10 meq PO DAILY 11/05/17 11/05/17 History Chloride] Allergies Allergy/AdvReac Type Severity Reaction Status Date / Time codeine AdvReac Unknown vomiting Verified 11/05/17 09:50 Exam Vital Signs: Temperature 98 F 11/05/17 09:25 Pulse Rate 88 11/05/17 09:25 Respiratory Rate 20 11/05/17 09:25 Blood Pressure 118/72 11/05/17 09:25 Pulse Oximetry 98 11/05/17 09:25 - Constitutional Present: moderate distress, obese - Routine HEENT Exam Head: Present: normocephalic Eye: Present: PERRL. Absent: conjunctival icterus, scleral injection ENT: Present: mucous membranes dry, oropharynx clear, dentition normal Comments: Slight acetone breath. - Routine Neck Exam Present: supple. Absent: lymphadenopathy - Routine Respiratory Exam Present: CTA bilaterally - Routine Cardiovascular Exam Present: RRR, S1, S2 - Routine Abdominal Exam Present: soft, tenderness (periumbilical). Absent: normoactive bowel sounds ( hypoactive), rebound, guarding - Routine Extremities Exam Present: no edema, pulses intact - Routine Skin Exam Present: intact, dry, warm - Routine Neurological Exam Present: alert, oriented X3, CN II-XII intact, normal speech - Routine Psychiatric Exam Present: cooperative Results - Labs CBC & Chem 7: 11/05/17 09:50 11/05/17 13:51 - ECG Data Tracing #1 I reviewed this ECG and interpreted as documented below: NSR. - Imaging and Cardiology CT scan - abdomen Status: image reviewed by me Additional comments: CT abdomen pelvis with contrast: Findings: The lung bases are clear. The liver is decreased in attenuation consistent with fatty infiltration. No enhancing liver mass or bile duct dilatation. The gallbladder is unremarkable. The spleen is within normal limits. There is inflammatory change and stranding again noted around the pancreatic body and tail without focal fluid collection. The pancreatic parenchyma enhances homogeneously. The adrenal glands are stable. Kidneys are within normal limits. No abdominal or pelvic lymphadenopathy. Bladder is normal. No free fluid or evidence of a bowel obstruction. The appendix is normal. Bone windows show no acute findings. Impression: Acute pancreatitis. Assessment and Plan (1) Pancreatitis Current visit: Yes Status: Acute Assessment and Plan: IMPRESSION Acute pancreatitis DKA Leukocytosis Dehydration DM type 2 HTN Hyperlipidemia LEON Obesity PLAN Admit, inpatient status, to CCU. Pancreatitis: IVF, bowel rest with NPO status, symptom control (Fentanyl, Morphine, Zofran). Trend lipase. Check lipid panel. DKA: Received 1L of IVF in ED. Repeat BMP on arrival to CCU to trend bicarb and gap to decide if he needs to be on insulin gtt and to determine which IVF to order. Check A1c (last one was 7.6% 06/01/17). Assess TSH. Will need to resume home medications once diet is advanced. Patient understands that he will need to take these as prescribed from now on. Discussed with Dr. Samuels. 11/05/2017-4:30 PM-I reviewed this chart, the patient history, and the QUANTITATIVE CONSULTANT's/PA 's documented findings as above. We discussed and formulated the assessment and plan as above with the additions below.-Dr. Samuels The patient was seen earlier this afternoon in his room. He is sleeping and using his usual home CPAP. He awakens easily and is able to converse using his CPAP. He states he started having abdominal pain 3 days ago on August. He has had decreased appetite since then. He states he stopped taking all of his medicines a month or 2 ago and was trying to treat his diabetes with diet only. He states he was feeling poorly last night so he did take all of his medicines last evening. He states he has not been checking his blood sugars. When his abdominal pain was not any better today presented to the emergency room and on CT was found to have acute pancreatitis. Lipase was 5452. Other pertinent lab revealed a carbon dioxide of 14 and glucose of 270. Anion gap was elevated at 23. Urine was positive for 3+ ketones and 2+ glucose. Specific gravity greater than 1.030. Patient was given IV fluids and transferred to intensive care for pancreatitis and possible diabetic ketoacidosis. On exam the patient awakens to voice. He is a good historian. Oropharynx is mildly dry. Neck is supple. Chest is clear to auscultation. Cardiovascular reveals a regular rate and rhythm. Abdomen is soft with hypoactive bowel sounds. He does have epigastric tenderness. Extremities are free of edema. Skin is warm and dry and without rashes. Lactate was obtained and was normal at 1.1. Hemoglobin A1c was 12.8. Lipid panel is pending. ABG had pH is 7.25, PCO2 33, PO2 of 66, bicarbonate 15 Impression Acute pancreatitis Metabolic acidosis, probable DKA Poorly controlled diabetes with hemoglobin A1c of 12.8 Dehydration History of hypertension Obstructive sleep apnea for which he uses CPAP Obesity Severe triglyceridemia of 7023 Severe hyperlipidemia with cholesterol of 532, VLDL 1400 Plan Continue to monitor closely in CCU. Initiate DKA protocol. (Discussed with Dr. Bledsoe, this is likely DKA) Monitor urine output closely. We'll check osmolality, but this will need to be sent out. TSH is pending. Recheck lipase tomorrow. Recheck lipids Wednesday. Discussed with cardiology. He will likely need treatment for hyperlipidemia prior to dismissal. Nothing by mouth for now. Greater than 90 minutes of critical care time spent seeing and evaluating the patient, discussing with the patient's , discussing with consultants, and determining care plan. DVT Prophylaxis: SCD's GI Prophylaxis: Protonix Resuscitation Status: Full Code - Physician Narrative Narrative: Date: 11/05/17 Time: 1311 Hospital Course Summary Disclaimer: The visit summary below is not to be considered part of the above Progress Note. Hospital Course: 11/05/17: Admit, inpatient status, to CCU. Pancreatitis: IVF, bowel rest with NPO status, symptom control (Fentanyl, Morphine, Zofran). Trend lipase. Check lipid panel. DKA: Received 1L of IVF in ED. Repeat BMP on arrival to CCU to trend bicarb and gap to decide if he needs to be on insulin gtt and to determine which IVF to order. Check A1c (last one was 7.6% 06/01/17). Assess TSH.
[2017-11-05] MEDS: MORPHINE SULFATE 4mg INJECTION IVP PRN ×2 (13:50→20:15)
[2017-11-05] MEDS: POTASSIUM CHLORIDE INJ 20 MEQ in D5NS 1,000 ML IV SCH ×2 (15:30→23:08)
[2017-11-05] MEDS: FentaNYL 100 MCG/2 ML INJECTION IVP PRN ×2 (15:43→19:10)
[2017-11-05] MEDS: INSULIN REGULAR, HUMAN 100 UNIT in NS 100 ML IV PRN ×2 (16:47→22:50)
[2017-11-05] MEDS: PANTOPRAZOLE 40 MG INJECTION IVP SCH (16:55)
[2017-11-05] MEDS: ONDANSETRON 4 MG/2 ML INJECTION IVP PRN ×2 (17:12→22:24)
[2017-11-05] MEDS: METOCLOPRAMIDE 10mg/2ml INJECTION IVP PRN (19:30)
[2017-11-06] MEDS: POTASSIUM CHLORIDE INJ 20 MEQ in D5NS 1,000 ML IV SCH ×7 (03:15→22:17)
[2017-11-06] MEDS: INSULIN REGULAR, HUMAN 100 UNIT in NS 100 ML IV PRN ×3 (04:23→19:15)
[2017-11-06] MEDS: FentaNYL 100 MCG/2 ML INJECTION IVP PRN ×5 (04:48→16:32)
[2017-11-06] MEDS: SALINE FLUSH 10ml SYRINGE IVF PRN ×3 (09:03→18:57)
[2017-11-06] MEDS: PANTOPRAZOLE 40 MG INJECTION IVP SCH (09:03)
[2017-11-06] MEDS ORDERED: NS 1,000 ML IV ONE (09:35)
--- NOTE | 2017-11-06 09:46 | Progress Note ---
- Date 11/06/17 Subjective: Derrell is seen this morning in CCU. His pain is currently controlled with when necessary fentanyl. He continues to have intermittent nausea requiring Reglan and Zofran. He states his abdominal pain is worse when he is nauseated or retching. He denies any headache or chest pain. He denies any shortness of breath. He is using his CPAP and we are bleeding in 2 L of oxygen. He has a Garcia in place with pink tinged cloudy urine. He has had no bowel movements or flatus. Objective Vital signs: Temperature 99.3 F 11/06/17 04:00 Pulse Rate 92 11/06/17 05:00 Respiratory Rate 41 H 11/05/17 20:30 Blood Pressure 119/67 11/05/17 20:30 Pulse Oximetry 88 L 11/05/17 20:30 Height/Weight/BMI: Weight 155.9 kg Comments: MAXIMUM TEMPERATURE 99.7, heart rate 94, blood pressure 112/59, O2 sat 91%, respiratory rate 26. Cumulative I&O 5627/935 GEN-alert, oriented, no acute distress HEENT-pupils are equal and round, extraocular movements are intact, oropharynx is moist, CPAP is on the nose NECK-supple CV-regular rate and rhythm CHEST-clear to auscultation bilaterally ABD-soft, hypoactive bowel sounds, mildly tender in the lower abdomen without rebound or guarding, moderately tender in the midabdomen without rebound or guarding -Garcia in place with pink tinged cloudy urine EXT-no edema, SCDs are on NEURO-no focal deficits, moves all 4 extremities well and equally. He is oriented 3. He asks good questions. SKIN-warm and dry and without rashes Results - Labs CBC & Chem 7: 11/06/17 03:00 11/06/17 07:10 Labs: White count is 10.0 down from 12.1. Bands are 23% up from 2% yesterday. Liver enzymes are essentially normal. Albumin is 3.7. Calcium is mildly low at 8.1. Knees EM is 1.9. Lipase is 2463 down from 5000 yesterday. Triglycerides are 1846 today down from 7000 Cholesterol is 267 Anion gap has normalized and is 9. Carbon dioxide is gradually improving and is 19. Blood sugars range from 158 -201 recently. - ABG Interpretation ABG results: 11/05/17 16:00 ABG pH 7.250 L ABG pCO2 33 L ABG pO2 66 L ABG HCO3 15 L ABG Total CO2 15.5 L ABG O2 Saturation 89.0 L ABG Base Excess -11.7 L Assessment and Plan (1) Pancreatitis Current visit: Yes Status: Acute Assessment and Plan: IMPRESSION Acute pancreatitis-improving with lipase trending down Severe Hypertriglyceridemia with level over 7000 on admission Hypercholesterolemia DKA-improved Leukocytosis-bandemia today, white count is down, no fever. We'll monitor Dehydration-increase IV fluids DM type 2-A1c 12.8 HTN LEON-on CPAP Obesity Plan Overall, the patient is improving. DKA is slowly resolving. Lipase is trending down. Nausea and vomiting and pain are improving. Triglycerides are improving. The patient will need to stay in CCU for close monitoring. Once DKA has resolved , will continue on dextrose and insulin to help bring down the patient's triglycerides which can help with treatment of his pancreatitis. Increase IV fluids with goal urine output 75 ML's per hour. Consult cardiology prior to discharge for help with treatment of severe hyperlipidemia/hypertriglyceridemia Continue CPAP. Continue nothing by mouth except sips and chips for now. When nausea is better, can start clear liquids. The patient's mother and are here and they were updated on the patient's condition and plans. Discussed plans with the patient's nurse. Over 45 minutes of critical care time spent seeing and evaluating the patient in determining care plan. Pic[place]une score is 5 We'll check C-reactive protein with next lab draw and in the morning. DVT Prophylaxis: SCD's, Lovenox GI Prophylaxis: Protonix Resuscitation Status: Full Code - Physician Narrative Narrative: Date: 11/06/17 Time: 09 Hospital Course Summary Disclaimer: The visit summary below is not to be considered part of the above Progress Note. Hospital Course: 11/05/17: Admit, inpatient status, to CCU. Pancreatitis: IVF, bowel rest with NPO status, symptom control (Fentanyl, Morphine, Zofran). Trend lipase. Check lipid panel. DKA: Received 1L of IVF in ED. Repeat BMP on arrival to CCU to trend bicarb and gap to decide if he needs to be on insulin gtt and to determine which IVF to order. Check A1c (last one was 7.6% 06/01/17). Assess TSH.
[2017-11-06] MEDS: ONDANSETRON 4 MG/2 ML INJECTION IVP PRN ×2 (11:15→16:41)
[2017-11-06] MEDS: ENOXAPARIN 40 MG/0.4 ML INJECTION SQ SCH (11:20)
[2017-11-06] MEDS: METOCLOPRAMIDE 10mg/2ml INJECTION IVP PRN (13:55)
[2017-11-06] MEDS ORDERED: ACETAMINOPHEN 650 MG/20.3 ML SOLUTION PO PRN (17:01)
[2017-11-06] MEDS ORDERED: ACETAMINOPHEN 650 MG SUPPOSITORY PR PRN (17:01)
[2017-11-06] MEDS ORDERED: POTASSIUM PHOSPHATE (mMol) 30 MMOL in NS 500ml 500 ML IV SCH (21:15)
[2017-11-07] MEDS: POTASSIUM CHLORIDE INJ 20 MEQ in D5NS 1,000 ML IV SCH ×2 (02:45→08:26)
[2017-11-07] MEDS: METOCLOPRAMIDE 10mg/2ml INJECTION IVP PRN (04:04)
[2017-11-07] MEDS: INSULIN REGULAR, HUMAN 100 UNIT in NS 100 ML IV PRN (04:04)
[2017-11-07] MEDS ORDERED: POTASSIUM PHOSPHATE (mMol) 30 MMOL in NS 500ml 500 ML IV SCH (08:00)
[2017-11-07] MEDS: ENOXAPARIN 40 MG/0.4 ML INJECTION SQ SCH (08:26)
[2017-11-07] MEDS: PANTOPRAZOLE 40 MG INJECTION IVP SCH (08:27)
--- NOTE | 2017-11-07 10:26 | Progress Note ---
- Date 11/07/17 Subjective: Patient was seen this morning in his room accompanied by his . He states he is feeling much better. He denies any abdominal pain. He has had some belching and flatus. Thirsty and hungry. He denies any chest discomfort. He denies any shortness of breath. He was using his CPAP last night. He did have tachycardia last evening in the 130s and currently heart rate is 100. He states like he feels he has more energy. He does report a history of frequent migraine headaches which she gets about once a week and can last for a couple of days. He states he will usually take 4 Excedrin Migraine tablets and then drink a "monsTSO3 energy drink with caffeine" . He denies a headache now. Objective Vital signs: Temperature 99.5 F 11/07/17 08:00 Pulse Rate 100 11/07/17 08:00 Respiratory Rate 22 11/07/17 08:00 Blood Pressure 138/84 11/07/17 08:00 Pulse Oximetry 94 11/07/17 08:00 Height/Weight/BMI: Weight 157 kg Comments: I&O cumulative 12.7 L over 2.27 GEN-alert, oriented, no acute distress HEENT-sclera anicteric, oropharynx is moist NECK-supple CV-borderline tachycardic rate with irregular rhythm CHEST-clear to auscultation bilaterally ABD-soft, obese, nontender, nondistended positive bowel sounds -Garcia in place with good urine output EXT-no edema NEURO-no focal deficits SKIN-warm and dry Results - Labs CBC & Chem 7: 11/07/17 04:11 11/07/17 04:11 Labs: Phosphorus is 2.1 which is low Triglycerides are 649 which is improved from 1846 yesterday Lipase is 477 down from 2463 yesterday Lactate last night was 1.5 and remained 1.5 on recheck Microbiology Results: Microbiology 11/06/17 17:32 Peripheral/Iv Start Blood Culture - Preliminary Culture Initiated - Results Pending 11/06/17 17:38 Peripheral/Iv Start Blood Culture - Preliminary Culture Initiated - Results Pending - ABG Interpretation ABG results: 11/05/17 11/06/17 16:00 17:25 ABG pH 7.250 L 7.430 ABG pCO2 33 L 29 L ABG pO2 66 L 62 L ABG HCO3 15 L 19 L ABG Total CO2 15.5 L 20.1 L ABG O2 Saturation 89.0 L 92.0 L ABG Base Excess -11.7 L -4.0 L Assessment and Plan (1) Pancreatitis Current visit: Yes Status: Acute Assessment and Plan: IMPRESSION Acute pancreatitis-improving with lipase trending down-abdominal pain is resolved Severe Hypertriglyceridemia with level over 7000 on admission-markedly improved with IV insulin Hypercholesterolemia DKA-resolved Tachycardia with heart rate up to 130 on the evening of 11/06/2017, currently down to 100 Leukocytosis-leukocytosis has resolved but he does have bandemia Dehydration-resolved DM type 2-A1c 12.8-patient had stopped all of his medicines one month ago HTN-as been on losartan at home but stopped all of his medicines one month ago LEON-on CPAP Obesity Frequent migraine headaches-none now History of mitral valve disorder Hypophosphatemia Plan DC D5 normal saline Discontinue IV insulin drip Start Lantus 30 units subcutaneous twice a day Start sliding scale insulin Start clear liquids and advance diet as tolerated Diabetes education Cardiology consult regarding history of heart disease and severe hyperlipidemia Recheck labs tomorrow Replace phosphorus Continue CPAP May need to restart losartan soon Greater than 40 minutes of critical care time spent evaluating patient in determining care plan. DVT Prophylaxis: Lovenox GI Prophylaxis: Protonix Resuscitation Status: Full Code - Physician Narrative Physician: Tiffanie Samuels MD Narrative: Date: 11/07/17 Time: 1021 Hospital Course Summary Disclaimer: The visit summary below is not to be considered part of the above Progress Note. Hospital Course: 11/05/17: Admit, inpatient status, to CCU. Pancreatitis: IVF, bowel rest with NPO status, symptom control (Fentanyl, Morphine, Zofran). Trend lipase. Check lipid panel. DKA: Received 1L of IVF in ED. Repeat BMP on arrival to CCU to trend bicarb and gap to decide if he needs to be on insulin gtt and to determine which IVF to order. Check A1c (last one was 7.6% 06/01/17). Assess TSH.
[2017-11-07] MEDS ORDERED: GLUCOSE ORAL GEL 40% 37.5gm PO PRN (10:37)
[2017-11-07] MEDS ORDERED: DEXTROSE 50% SYRINGE 50ml (1 AMP) IVP PRN (10:37)
[2017-11-07] MEDS: INSULIN GLARGINE 100unit/ml INJECTION SQ SCH ×2 (10:52→20:21)
--- NOTE | 2017-11-07 10:54 | XRay Report ---
Indication: hypoxia XR chest 1V: Comparison: None Technique: Single portable AP upright chest Findings: Patient showed normal heart, central vascularity and mediastinum. Minimal atelectatic changes suggested in the lungs. No focal parenchymal consolidations or pleural effusions noted. No acute bony findings noted. Impression: Minimal atelectatic changes with no additional acute findings. .
--- NOTE | 2017-11-07 11:03 | XRay Report ---
Indication: hypoxia XR chest 1V: Comparison: 11/06/2017 Technique: Single portable upright chest Findings: Patient changes show just minimal basilar atelectatic changes with no focal prequel consolidation or acute cardiac decompensation. Impression: Mild atelectatic changes with no acute new abnormality. .
[2017-11-07] MEDS: NS with KCL 20 mEq 1,000 ML IV SCH ×2 (12:50→19:42)
[2017-11-07] MEDS: INSULIN ASPART 100unit/ml INJECTION SQ PRN ×2 (15:16→20:22)
[2017-11-07] MEDS ORDERED: INSULIN ASPART 100unit/ml INJECTION SQ SCH (17:30)
[2017-11-08] MEDS: INSULIN ASPART 100unit/ml INJECTION SQ PRN ×4 (06:35→21:52)
[2017-11-08] MEDS: NS with KCL 20 mEq 1,000 ML IV SCH (06:35)
[2017-11-08] MEDS: ENOXAPARIN 40 MG/0.4 ML INJECTION SQ SCH (08:20)
[2017-11-08] MEDS: INSULIN GLARGINE 100unit/ml INJECTION SQ SCH ×2 (08:23→21:49)
[2017-11-08] MEDS: PANTOPRAZOLE 40 MG INJECTION IVP SCH (08:36)
[2017-11-08] MEDS: SALINE FLUSH 10ml SYRINGE IVF PRN ×2 (08:37→10:27)
[2017-11-08] MEDS: INSULIN ASPART 100unit/ml INJECTION SQ SCH ×3 (08:47→18:12)
[2017-11-08] MEDS: PHOSPHORUS 250 MG TABLET PO SCH ×4 (10:16→21:50)
[2017-11-08] MEDS: METOCLOPRAMIDE 10mg/2ml INJECTION IVP PRN (10:26)
--- NOTE | 2017-11-08 10:58 | Cardiology Consult Note ---
<Christianne Rahman - Last Filed: 11/09/17 10:08> History of Present Illness Consult date: 11/07/17 Requesting physician: Tiffanie Samuels Chief complaint: hyperlipidemia with heart disease History of present illness: Derrell is a 47 year old male patient of Dr. Lee with a history of type 2 DM, HTN, dyslipidemia, and obesity. He is currently prescribed Metformin, insulin, Losartan, and fenofibrate. He had a bout of pancreatitis in Feb, 2017, which he thought might have been related to Victoza and/or some EtOH intake; but he also reports that he stopped all Rx meds for 2-3 weeks before dx with pancreatitis. Thinking he could make some positive life changes to control his chronic conditions, Derrell stopped all of his Rx medications about 1 month earlier. He hasn't drank EtOH since his last round of pancreatitis. He began feeling sick with abdominal pain after eating breakfast on November 02. Over the next few days , he developed constant periumbilical pain that waxed and waned in severity. It shot straight through to his back. He developed nausea and vomited up bile twice on 11/05/17. He felt hot and feverish and had chills. His states that he wasn't able to sleep. He had one loose stool but denies seeing any blood. His symptoms were consistent to how he felt last February, and he went to [facility] ED for evaluation where pancreatitis was confirmed. His lipase was 5,452. WBC was slightly elevated at 12.1; hgb was high at 17.8. Gap was elevated at 23 and bicarb was low at 14. Glucose was 270. A CT scan of his abdomen showed pancreatitis. The hospitalist service was notified and the patient was admitted to the CCU as an inpatient for treatment of both pancreatitis and DKA. Dr. Heath is consulted for severe hyperlipidemia with history of heart disease. Review of Systems - Constitutional Constitutional: Absent: chills, fatigue, fever(s) - EENMT Eyes: Absent: blurry vision Balance: Absent: vertigo Mouth/Throat: Absent: sore throat - Cardiovascular Cardiovascular: Absent: chest pain, palpitations, syncope, dyspnea on exertion, edema Vascular: Absent: intermittent claudication, pedal edema - Respiratory Respiratory: Absent: cough, dyspnea on exertion - Gastrointestinal Gastrointestinal: Present: abdominal pain, nausea, vomiting - Genitourinary Genitourinary: Absent: dysuria - Integumentary/Breasts Integumentary: Absent: rash - Neurological Neurological: Absent: dizziness - Endocrine Endocrine: Absent: palpitations PFSH Patient Stated Medical History Other HEENT Yes: WEARS GLASSES Other Cardiology Yes: MITRAL VALVE REGIRITATION WHEN YOUNGER Diabetes Mellitus Type 2 Yes Other GI Yes: PANCREATITIS Surgical History: R ankle reconstruction. R 4th and 5th finger surgery. Ganglion cyst removed from R knee. T&A Family History: Family History Mother Diabetes Maternal Grandfather Cancer - Social History Smoking status: Former smoker (quit several years ago) Substance use type: does not use Alcohol intake frequency: former alcohol drinker Household members: spouse Current occupational status: employed Current residence: Apartment/Private Home Medications Home Medications Medication Instructions Recorded Confirmed Type Fenofibrate [Lofibra] 160 mg PO DAILY 11/05/17 11/05/17 History Insulin Degludec [Tresiba 66 unit SQ HS 11/05/17 11/05/17 History Flextouch U-200] Metformin [Glucophage] 1,000 mg PO BIDWM 11/05/17 11/05/17 History Potassium Chloride 10 meq PO DAILY 11/05/17 11/05/17 History Allergies Allergy/AdvReac Type Severity Reaction Status Date / Time codeine AdvReac Unknown vomiting Verified 11/05/17 09:50 Exam Vital signs: Temperature 98.5 F 11/08/17 09:00 Pulse Rate 92 11/08/17 10:00 Respiratory Rate 24 11/08/17 09:00 Blood Pressure 115/65 11/08/17 10:00 Pulse Oximetry 93 11/08/17 10:00 - Constitutional no acute distress, obese, cooperative - Routine HEENT Exam Head: Present: normocephalic ENT: Present: mucous membranes moist - Routine Neck Exam Absent: JVD, carotid bruit - Routine Chest/Breast/Axilla Exam Chest wall: Absent: tenderness - Routine Respiratory Exam Present: CTA bilaterally. Absent: rales, wheezes - Routine Cardiovascular Exam Present: RRR, no murmur. Absent: tachycardia - Routine Abdominal Exam Present: soft, normoactive bowel sounds - Routine Extremities Exam Present: no edema - Routine Skin Exam Present: intact, dry, warm - Routine Neurological Exam Present: alert, oriented X3 - Routine Psychiatric Exam Present: normal affect, normal thought process Results 11/08/17 04:16 11/08/17 04:16 Cardiac Enzymes 11/08/17 Range/Units 04:16 AST 15 L (17-59) U/L Lipids 11/08/17 Range/Units 04:16 Triglycerides 326 H (40-160) MG/DL CBC 11/08/17 Range/Units 04:16 WBC 9.0 (4.5-11.0) T/MM3 RBC 4.48 L (4.50-5.90) M/MM3 Hgb 13.0 L D (13.5-17.5) GM/DL Hct 39.7 L D (41-53) % Plt Count 160 (130-400) T/MM3 Comprehensive Metabolic Panel 11/08/17 Range/Units 04:16 Sodium 140 (134-144) MEQ/L Potassium 3.5 L (3.6-5) MEQ/L Chloride 107 D (98-107) MEQ/L Carbon Dioxide 23 (22-30) MEQ/L BUN 7.0 L (9-20) MG/DL Creatinine 0.8 (0.8-1.5) MG/DL Glucose 193 H (75-110) MG/DL Calcium 8.9 (8.4-10.2) MG/DL AST 15 L (17-59) U/L ALT 23 (21-72) U/L Alkaline Phosphatase 59 (38-126) U/L Total Protein 6.7 (6.3-8.2) G/DL Albumin 3.4 L (3.5-5.0) G/DL Intake and Output 11/07/17 11/08/17 11/08/17 22:59 06:59 14:59 Intake Total 1997.75 / 1997.75 1723.75 / 1723.75 925.00 / 925.00 Output Total 1345 / 1345 1999 / 1999 600 / 600 Balance 653.75 / 653.75 -276.25 / -276.25 325.00 / 325.00 Intake: IV 1038.75 / 1038.75 643.75 / 643.75 125.00 / 125.00 NS with KCL 20 mEq 1,000 ml @ 1038.75 / 1038.75 643.75 / 643.75 125.00 / 125.00 75 mls/hr IV .[id number] [facility] Rx#: [id number] Oral 960 / 960 1080 / 1080 800 / 800 Output: Stool 200 / 200 100 / 100 Urine Amount (Catheter) 1145 / 1145 1900 / 1900 600 / 600 Other: Urine Appearance Clear Clear Clear Urine Color Dark Yellow Yellow Yellow Urine Odor Normal Stool Color Brown Brown Stool Consistency Liquid Liquid Size of Bowel Movement Moderate Small # Bowel Movements 1 1 Weight 354 lb 11.58 oz 355 lb 2.635 oz Patient Weight 11/09/17 06:59 Weight 355 lb 2.635 oz Laboratory Results - last 24 hr 11/07/17 11/07/17 11/07/17 12:41 14:30 15:13 WBC RBC Hgb Hct MCV MCH MCHC RDW Std Deviation Plt Count MPV Neutrophils % (Manual) Band Neutrophils % Lymphocytes % (Manual) Monocytes % (Manual) Eosinophils % (Manual) Neutrophils # (Manual) Band Neutrophils # Lymphocytes # (Manual) Monocytes # (Manual) Eosinophils # (Manual) Tear Drop Cells RBC Morph Comment Turbidity Sodium Potassium Chloride Carbon Dioxide Anion Gap BUN Creatinine GFR Calculation BUN/Creatinine Ratio Glucose Glucometer 162 239 223 Calculated Osmolality Calcium Phosphorus Magnesium Total Bilirubin Icterus Index AST ALT Alkaline Phosphatase Total Protein Albumin Globulin Albumin/Globulin Ratio Triglycerides Specimen Hemolysis 11/07/17 11/07/17 11/08/17 17:40 20:18 04:16 WBC 9.0 RBC 4.48 L Hgb 13.0 L D Hct 39.7 L D MCV 88.6 MCH 29.0 MCHC 32.7 RDW Std Deviation 51.6 H Plt Count 160 MPV 10.6 Neutrophils % (Manual) 52.0 Band Neutrophils % 20.0 H D Lymphocytes % (Manual) 25.0 Monocytes % (Manual) 1.0 Eosinophils % (Manual) 2.0 Neutrophils # (Manual) 4.7 Band Neutrophils # 1.8 Lymphocytes # (Manual) 2.3 Monocytes # (Manual) 0.1 Eosinophils # (Manual) 0.2 Tear Drop Cells 1+ RBC Morph Comment Abnormal Turbidity Sodium Potassium Chloride Carbon Dioxide Anion Gap BUN Creatinine GFR Calculation BUN/Creatinine Ratio Glucose Glucometer 242 209 Calculated Osmolality Calcium Phosphorus Magnesium Total Bilirubin Icterus Index AST ALT Alkaline Phosphatase Total Protein Albumin Globulin Albumin/Globulin Ratio Triglycerides Specimen Hemolysis 11/08/17 11/08/17 11/08/17 04:16 06:31 10:19 WBC RBC Hgb Hct MCV MCH MCHC RDW Std Deviation Plt Count MPV Neutrophils % (Manual) Band Neutrophils % Lymphocytes % (Manual) Monocytes % (Manual) Eosinophils % (Manual) Neutrophils # (Manual) Band Neutrophils # Lymphocytes # (Manual) Monocytes # (Manual) Eosinophils # (Manual) Tear Drop Cells RBC Morph Comment Turbidity < 20 Sodium 140 Potassium 3.5 L Chloride 107 D Carbon Dioxide 23 Anion Gap 10 BUN 7.0 L Creatinine 0.8 GFR Calculation 104 BUN/Creatinine Ratio 9 Glucose 193 H Glucometer 207 194 Calculated Osmolality 272 Calcium 8.9 Phosphorus 2.3 L Magnesium 1.8 Total Bilirubin 1.20 Icterus Index < 2 AST 15 L ALT 23 Alkaline Phosphatase 59 Total Protein 6.7 Albumin 3.4 L Globulin 3.3 Albumin/Globulin Ratio 1.0 L Triglycerides 326 H Specimen Hemolysis 21 - Imaging and Cardiology Imaging & Cardiology Narrative: Date of Exam: 11/07/17 Ordering Provider: Tiffanie Samuels MD Type of Exam(s): XR chest 1V Reason for Exam(s): hypoxia Indication: hypoxia XR chest 1V: Comparison: 11/06/2017 Technique: Single portable upright chest Findings: Patient changes show just minimal basilar atelectatic changes with no focal prequel consolidation or acute cardiac decompensation. Impression: Mild atelectatic changes with no acute new abnormality. 11/08/17 11:01 11/09/17 10:09 Date of Exam: 11/08/17 Type of Exam(s): US echo doppler complete DATE OF PROCEDURE November 08, 2017 This is a two-dimensional echo with spectral Doppler, color-flow and M-mode. It was obtained in a patient with tachycardia. Left atrial dimension is normal. Left ventricular end-diastolic dimension is normal. Left ventricular wall thickness is normal. LV systolic function is normal with ejection fraction of about 70%. Right atrium is normal. Right ventricle is normal. Aortic root dimension is normal. Mitral valve is morphologically normal with trace of mitral regurgitation. Aortic valve appears to be normal. Tricuspid valve shows mild tricuspid regurgitation with mild pulmonary hypertension with estimated pulmonary artery systolic pressure of 39. Pulmonary valve shows trace of pulmonary insufficiency. There is no pericardial effusion. IMPRESSION 1. Normal LV systolic function with ejection fraction of about 70%. 2. Trace of mitral regurgitation. 3. Mild tricuspid regurgitation with mild pulmonary hypertension with estimated pulmonary artery systolic pressure of 39. 4. Trace of pulmonary insufficiency. EKG interpretations - EKG EKG results cardiology: WNL, sinus rhythm Assessment and Plan - Assessment and Plan (1) Mixed hyperlipidemia Status: Acute Start Atorvastatin 80mg po at HS - LFTs in 2 weeks, LFTS and Lipids in 8 weeks (2) Pancreatitis Status: Acute (3) Essential (primary) hypertension Status: Chronic Lisinopril 5mg daily (4) Obesity Status: Chronic (5) Diabetes mellitus type 2 in obese Status: Chronic Start Lisinopril 5mg daily - Assessment and Plan HLD: Start Atorvastatin 80mg po at HS, fish oil daily - LFTs in 2 weeks, LFTS and Lipids in 8 weeks - EKG now please - 2D echo for valvular disease - Start Lisinopril 5mg daily Thank you for allowing us to participate in the care of this patient. Hospital Course Summary Disclaimer: The visit summary below is not to be considered part of the above Progress Note. Hospital Course: 11/05/17: Admit, inpatient status, to CCU. Pancreatitis: IVF, bowel rest with NPO status, symptom control (Fentanyl, Morphine, Zofran). Trend lipase. Check lipid panel. DKA: Received 1L of IVF in ED. Repeat BMP on arrival to CCU to trend bicarb and gap to decide if he needs to be on insulin gtt and to determine which IVF to order. Check A1c (last one was 7.6% 06/01/17). Assess TSH. <Benedict Heath - Last Filed: 11/10/17 13:26> [facility] Patient Stated Medical History Other HEENT Yes: WEARS GLASSES Other Cardiology Yes: MITRAL VALVE REGIRITATION WHEN YOUNGER Diabetes Mellitus Type 2 Yes Other GI Yes: PANCREATITIS Family History: Family History Mother Diabetes Maternal Grandfather Cancer Exam Vital signs: Temperature 99 F 11/09/17 12:00 Pulse Rate 80 11/09/17 12:00 Respiratory Rate 18 11/09/17 12:00 Blood Pressure 128/68 11/09/17 12:00 Pulse Oximetry 96 11/09/17 12:00 Results 11/08/17 04:16 11/08/17 04:16 Assessment and Plan - Attestation Attestation Narrative: 11/10/17 13:26 Recommendation After examining the patient I agree with the above assessment. I am involved in the formulation of the patient's plan of care. - Assessment and Plan (1) Pancreatitis Status: Acute (2) Mixed hyperlipidemia Status: Acute (3) Essential (primary) hypertension Status: Chronic (4) Obesity Status: Chronic (5) Diabetes mellitus type 2 in obese Status: Chronic Hospital Course Summary Disclaimer: The visit summary below is not to be considered part of the above Progress Note.
--- NOTE | 2017-11-08 14:31 | Ultrasound Report ---
Indication: pancreatitis, r/o stone US gall bladder: Comparison: 02/18/2017 ultrasound the abdomen Technique: Real-time and color flow imaging Findings: Patient is challenging to scan due to body habitus. Pancreas: Not particularly well seen. Liver: Shows diffuse fatty infiltration and is measuring over 20 cm. No focal masses or biliary ductal dilatation noted. Gallbladder shows no stones or wall thickening with a normal common duct and no tenderness to transducer palpation. Right kidney is showing no obstruction, masses or cysts. No free fluid. Impression: 1. Diffuse liver prominence with fatty infiltration but no biliary ductal dilatation or focal masses. 2. Difficult to visualize the pancreas due to overlying bowel gas. No major pseudocysts formation or significant fluid identified but, CT scanning without and with contrast enhancement is perhaps more accurate in staging level pancreatic inflammation. .
[2017-11-08] MEDS ORDERED: LISINOPRIL 5 MG TABLET PO SCH (15:30)
[2017-11-08] MEDS: OMEGA-3 ACID ESTERS 1 GM CAPSULE PO SCH (15:45)
--- NOTE | 2017-11-08 20:09 | Progress Note ---
- Date 11/08/17 Subjective: Seen in the ICU: He states is feeling significantly improved today. Abdominal pain is significantly down. Does not feel terribly fluid overloaded despite the increase of 10 kg of essentially water weight from fluid management of his pancreatitis Objective Vital signs: Temperature 98.5 F 11/08/17 12:00 Pulse Rate 110 H 11/08/17 19:00 Respiratory Rate 38 H 11/08/17 19:00 Blood Pressure 147/86 H 11/08/17 19:00 Pulse Oximetry 93 11/08/17 19:00 Height/Weight/BMI: Weight 161.1 kg - Constitutional Present: no acute distress, well developed, obese - Routine HEENT Exam Head: Present: normocephalic, atraumatic Eye: Present: EOMI ENT: Present: mucous membranes moist, dentition normal - Routine Respiratory Exam Present: CTA bilaterally. Absent: wheezes - Routine Cardiovascular Exam Present: RRR, S1, S2. Absent: murmur - Routine Abdominal Exam Present: soft, normoactive bowel sounds, non distended, distended. Absent: tenderness, rebound - Routine Extremities Exam Present: normal capillary refill - Routine Skin Exam Present: dry, warm - Routine Neurological Exam Present: alert, oriented X3, CN II-XII intact - Routine Lymphatic Exam Lymphatic: Absent: adenopathy - Routine Psychiatric Exam Present: normal affect Results - Labs CBC & Chem 7: 11/08/17 04:16 11/08/17 04:16 Microbiology Results: Microbiology 11/06/17 17:32 Peripheral/Iv Start Blood Culture - Preliminary No Growth After 2 Days 11/06/17 17:38 Peripheral/Iv Start Blood Culture - Preliminary No Growth After 2 Days Assessment and Plan (1) Pancreatitis Current visit: Yes Status: Acute (2) Diabetes mellitus type 2 in obese Current visit: Yes Status: Chronic (3) Obesity Current visit: Yes Status: Chronic Assessment and Plan: IMPRESSION Acute pancreatitis-improving with lipase trending down-abdominal pain is resolved Severe Hypertriglyceridemia with level over 7000 on admission-markedly improved with IV insulin Hypercholesterolemia DKA-resolved Tachycardia with heart rate up to 130 on the evening of 11/06/2017, currently down to 100 Leukocytosis-leukocytosis has resolved but he does have bandemia Dehydration-resolved DM type 2-A1c 12.8-patient had stopped all of his medicines one month ago HTN-as been on losartan at home but stopped all of his medicines one month ago LEON-on CPAP Obesity Frequent migraine headaches-none now History of mitral valve disorder Hypophosphatemia Plan DC D5 normal saline Discontinue IV insulin drip Start Lantus 30 units subcutaneous twice a day Start sliding scale insulin Start clear liquids and advance diet as tolerated Diabetes education Cardiology consult regarding history of heart disease and severe hyperlipidemia Recheck labs tomorrow Replace phosphorus Continue CPAP May need to restart losartan soon Greater than 40 minutes of critical care time spent evaluating patient in determining care plan. - Physician Narrative Narrative: Patient is comfortable. Does appear to need to diurese. He is scheduled to be seen by cardiology. Will move patient to medical floor later today. Date: 11/08/17 Time: 2005 Hospital Course Summary Disclaimer: The visit summary below is not to be considered part of the above Progress Note. Hospital Course: 11/05/17: Admit, inpatient status, to CCU. Pancreatitis: IVF, bowel rest with NPO status, symptom control (Fentanyl, Morphine, Zofran). Trend lipase. Check lipid panel. DKA: Received 1L of IVF in ED. Repeat BMP on arrival to CCU to trend bicarb and gap to decide if he needs to be on insulin gtt and to determine which IVF to order. Check A1c (last one was 7.6% 06/01/17). Assess TSH.
[2017-11-08] MEDS ORDERED: ATORVASTATIN 40 MG TABLET PO SCH (21:00)
--- NOTE | 2017-11-08 22:01 | Echocardiogram ---
DATE OF PROCEDURE November 08, 2017 This is a two-dimensional echo with spectral Doppler, color-flow and M-mode. It was obtained in a patient with tachycardia. Left atrial dimension is normal. Left ventricular end-diastolic dimension is normal. Left ventricular wall thickness is normal. LV systolic function is normal with ejection fraction of about 70%. Right atrium is normal. Right ventricle is normal. Aortic root dimension is normal. Mitral valve is morphologically normal with trace of mitral regurgitation. Aortic valve appears to be normal. Tricuspid valve shows mild tricuspid regurgitation with mild pulmonary hypertension with estimated pulmonary artery systolic pressure of 39. Pulmonary valve shows trace of pulmonary insufficiency. There is no pericardial effusion. IMPRESSION 1. Normal LV systolic function with ejection fraction of about 70%. 2. Trace of mitral regurgitation. 3. Mild tricuspid regurgitation with mild pulmonary hypertension with estimated pulmonary artery systolic pressure of 39. 4. Trace of pulmonary insufficiency. MTDD
[2017-11-09] MEDS: INSULIN ASPART 100unit/ml INJECTION SQ PRN ×2 (06:20→13:20)
[2017-11-09] MEDS: PHOSPHORUS 250 MG TABLET PO SCH ×2 (08:21→13:18)
[2017-11-09] MEDS: INSULIN ASPART 100unit/ml INJECTION SQ SCH ×2 (08:21→13:19)
[2017-11-09] MEDS ORDERED: ASPIRIN *EC* 81 MG TABLET PO SCH (09:00)
[2017-11-09] MEDS ORDERED: LISINOPRIL 10 MG TABLET PO SCH (09:00)
[2017-11-09] MEDS: INSULIN GLARGINE 100unit/ml INJECTION SQ SCH (09:00)
[2017-11-09] MEDS: OMEGA-3 ACID ESTERS 1 GM CAPSULE PO SCH (09:02)
[2017-11-09] MEDS: ENOXAPARIN 40 MG/0.4 ML INJECTION SQ SCH (09:04)
[2017-11-09 09:14] VITALS: RESP 18; O2SAT 96
[2017-11-09] MEDS: PANTOPRAZOLE 40 MG INJECTION IVP SCH (09:30)
--- NOTE | 2017-11-09 10:13 | Cardiology Progress Note ---
<Christianne Rahman - Last Filed: 11/09/17 10:10> Subjective Principal diagnosis: hyperlipidemia Interval history: Derrell is seen in follow up for hyperlipidemia. He is in bed eating breakfast this morning. He states he is ready to go home and has no abdominal or chest pain. Exam Vital signs: Temperature 98.9 F 11/09/17 08:00 Pulse Rate 93 11/09/17 08:00 Respiratory Rate 18 11/09/17 08:00 Blood Pressure 123/74 11/09/17 08:00 Pulse Oximetry 96 11/09/17 08:00 - Constitutional no acute distress, morbidly obese, cooperative - Routine HEENT Exam Head: Present: normocephalic ENT: Present: mucous membranes moist - Routine Neck Exam Absent: JVD, carotid bruit - Routine Chest/Breast/Axilla Exam Chest wall: Absent: tenderness - Routine Respiratory Exam Present: CTA bilaterally. Absent: dyspnea, rales, wheezes - Routine Cardiovascular Exam Present: RRR, no murmur. Absent: JVD - Routine Abdominal Exam Present: soft, normoactive bowel sounds - Routine Extremities Exam Present: no edema - Routine Skin Exam Present: intact, dry, warm - Routine Neurological Exam Present: alert, oriented X3 - Routine Psychiatric Exam Present: normal affect, normal thought process - Additional findings Additional findings: Acetaminophen (Acetaminophen) 650 mg PO Q4H PRN Acetaminophen (Tylenol Supp) 650 mg NC Q5H PRN PRN Reason: Pain Aspirin (Ecotrin) 81 mg PO DAILY [facility] Last Admin: 11/09/17 09:30 Dose: 81 mg Atorvastatin Calcium (Lipitor) 80 mg PO HS [facility] Last Admin: 11/08/17 21:48 Dose: 80 mg Dextrose (D50%W) 20 ml IVP PRN PRN PRN Reason: Hypoglycemia Enoxaparin Sodium (Lovenox) 40 mg SQ DAILY [facility] Last Admin: 11/09/17 09:04 Dose: 40 mg Glucose (Glutose 15) 37.5 gm PO PRN PRN PRN Reason: Hypoglycemia Insulin Aspart (Novolog) 2 - 8 unit SQ SS PRN; Protocol PRN Reason: Hyperglycemia Last Admin: 11/09/17 06:20 Dose: 2 unit Insulin Aspart (Novolog) 15 unit SQ WM [facility] Last Admin: 11/09/17 08:21 Dose: 15 unit Insulin Glargine (Lantus) 30 unit SQ BID [facility] Last Admin: 11/09/17 09:00 Dose: 30 unit Lisinopril (Prinivil) 10 mg PO DAILY [facility] Last Admin: 11/09/17 09:03 Dose: 10 mg Metoclopramide HCl (Reglan) 10 mg IVP Q6H PRN Last Admin: 11/08/17 10:26 Dose: 10 mg Morphine Sulfate (Morphine Sulfate Inj) 4 - 6 mg IVP Q3H PRN PRN Reason: Pain Last Admin: 11/05/17 20:15 Dose: 4 mg Ltyvm-3-Jezk Ethyl Esters (Lovaza) 1 gm PO DAILY [facility] Last Admin: 11/09/17 09:02 Dose: 1 gm Ondansetron HCl (Zofran) 4 mg IVP Q4H PRN PRN Reason: Nausea &/or vomiting Last Admin: 11/06/17 16:41 Dose: 4 mg Pantoprazole Sodium (Protonix Iv) 40 mg IVP DAILY [facility] Last Admin: 11/09/17 09:30 Dose: 40 mg Sodium Chloride (Iv Flush) 10 - 80 ml IVF PRN PRN PRN Reason: Flushing Last Admin: 11/08/17 10:27 Dose: 10 ml Sodium Phosphate (K-Phos *Neutral* Tablet) 500 mg PO WMHS [facility] Last Admin: 11/09/17 08:21 Dose: 500 mg - Urinary Catheter Management Coude Cath placed during this visit: yes, but has since been removed by the nurse Insertion date: 11/05/17 Insertion time: 22:35 Removal date: 11/08/17 Removal time: 08:35 Results 11/08/17 04:16 11/08/17 04:16 Intake and Output 11/08/17 11/09/17 11/09/17 22:59 06:59 14:59 Intake Total 2099 800 / 800 Output Total 925 / 925 725 / 725 425 / 425 Balance 1175 / 1175 75 / 75 -425 / -425 Intake: Oral 2099 800 / 800 Output: Urine 925 / 925 725 / 725 425 / 425 Other: Urine Appearance Clear Urine Color Straw Dark Yellow Yellow Urine Odor Normal Normal Stool Color Brown Stool Consistency Loose Size of Bowel Movement Large - Imaging and Cardiology Imaging & Cardiology Narrative: Date of Exam: 11/08/17 Type of Exam(s): US echo doppler complete DATE OF PROCEDURE November 08, 2017 This is a two-dimensional echo with spectral Doppler, color-flow and M-mode. It was obtained in a patient with tachycardia. Left atrial dimension is normal. Left ventricular end-diastolic dimension is normal. Left ventricular wall thickness is normal. LV systolic function is normal with ejection fraction of about 70%. Right atrium is normal. Right ventricle is normal. Aortic root dimension is normal. Mitral valve is morphologically normal with trace of mitral regurgitation. Aortic valve appears to be normal. Tricuspid valve shows mild tricuspid regurgitation with mild pulmonary hypertension with estimated pulmonary artery systolic pressure of 39. Pulmonary valve shows trace of pulmonary insufficiency. There is no pericardial effusion. IMPRESSION 1. Normal LV systolic function with ejection fraction of about 70%. 2. Trace of mitral regurgitation. 3. Mild tricuspid regurgitation with mild pulmonary hypertension with estimated pulmonary artery systolic pressure of 39. 4. Trace of pulmonary insufficiency. 11/09/17 10:13 11/09/17 10:13 Date of Exam: 11/08/17 Ordering Provider: Christian Valdes MD Type of Exam(s): US gall bladder Reason for Exam(s): pancreatitis, r/o stone Indication: pancreatitis, r/o stone US gall bladder: Comparison: 02/18/2017 ultrasound the abdomen Technique: Real-time and color flow imaging Findings: Patient is challenging to scan due to body habitus. Pancreas: Not particularly well seen. Liver: Shows diffuse fatty infiltration and is measuring over 20 cm. No focal masses or biliary ductal dilatation noted. Gallbladder shows no stones or wall thickening with a normal common duct and no tenderness to transducer palpation. Right kidney is showing no obstruction, masses or cysts. No free fluid. Impression: 1. Diffuse liver prominence with fatty infiltration but no biliary ductal dilatation or focal masses. 2. Difficult to visualize the pancreas due to overlying bowel gas. No major pseudocysts formation or significant fluid identified but, CT scanning without and with contrast enhancement is perhaps more accurate in staging level pancreatic inflammation. Assessment and Plan - Assessment and Plan (1) Mixed hyperlipidemia Status: Acute (2) Pancreatitis Status: Acute (3) Essential (primary) hypertension Status: Chronic (4) Obesity Status: Chronic (5) Diabetes mellitus type 2 in obese Status: Chronic - Assessment and Plan 11/08/17 HLD: Start Atorvastatin 80mg po at HS, fish oil daily - LFTs in 2 weeks, LFTS and Lipids in 8 weeks - EKG now please - 2D echo for valvular disease - Start Lisinopril 5mg daily Thank you for allowing us to participate in the care of this patient. 11/09/17 - Increase Lisinopril to 10mg daily - Aspirin 81mg daily - Okay to discharge from cardiology Hospital Course Summary Disclaimer: The visit summary below is not to be considered part of the above Progress Note. Hospital Course: 11/05/17: Admit, inpatient status, to CCU. Pancreatitis: IVF, bowel rest with NPO status, symptom control (Fentanyl, Morphine, Zofran). Trend lipase. Check lipid panel. DKA: Received 1L of IVF in ED. Repeat BMP on arrival to CCU to trend bicarb and gap to decide if he needs to be on insulin gtt and to determine which IVF to order. Check A1c (last one was 7.6% 06/01/17). Assess TSH. <Benedict Heath - Last Filed: 11/10/17 13:45> Exam Vital signs: Temperature 99 F 11/09/17 12:00 Pulse Rate 80 11/09/17 12:00 Respiratory Rate 18 11/09/17 12:00 Blood Pressure 128/68 11/09/17 12:00 Pulse Oximetry 96 11/09/17 12:00 - Urinary Catheter Management Coude Cath placed during this visit: no Results 11/08/17 04:16 11/08/17 04:16 Assessment and Plan - Assessment and Plan (1) Pancreatitis Status: Acute (2) Mixed hyperlipidemia Status: Acute (3) Essential (primary) hypertension Status: Chronic (4) Obesity Status: Chronic (5) Diabetes mellitus type 2 in obese Status: Chronic - Attestation Attestation Narrative: 11/10/17 13:45 Recommendation After examining the patient I agree with the above assessment. I am involved in the formulation of the patient's plan of care. Hospital Course Summary Disclaimer: The visit summary below is not to be considered part of the above Progress Note.
--- NOTE | 2017-11-09 13:08 | Discharge Summary ---
Discharge Information Date of admission: 11/05/17 12:45 Anticipated date of discharge: 11/09/17 Attending Physician: Christian Valdes MD Primary care physician: Kehinde Lee DO Consults: 11/07/17 [employer] Consult [Inpatient Diabetic Consult] [CONS] Routine Diabetic Diagnosis: E11.65 Uncontrolled T2 DM Diabetic Training: Carb Counting Detect Complications Monitoring Diabetes Medications Nutritional Management 11/07/17 10:37 Dietary Consult [CONS] Routine Comment: Reason For Exam: 11/07/17 10:38 Physician Consult [CONS] Routine Consulting Provider: Benedict Heath Reason For Exam: severe hyperlipidemia, hx of heart disease Ordering Provider has Notified Assistant County Attorney: Yes Comment: i will notify - Discharge Diagnosis (1) Pancreatitis Status: Acute (2) Diabetes mellitus type 2 in obese Status: Chronic (3) Obesity Status: Chronic - Laboratory Labs: 11/08/17 04:16 11/08/17 04:16 - Microbiology Microbiology 11/06/17 17:32 Peripheral/Iv Start Blood Culture - Preliminary No Growth After 2 Days 11/06/17 17:38 Peripheral/Iv Start Blood Culture - Preliminary No Growth After 2 Days History of Present Illness HPI: Derrell Perkins is a 47 year old male with a history of type 2 DM, HTN, dyslipidemia, and obesity. Dr. Lee has Rx medications for his metabolic conditions, including Metformin, insulin, Losartan, and fenofibrate. He had a bout of pancreatitis in Feb, 2017, which he thought might have been related to Victoza and/or some EtOH intake; but he also reports that he stopped all Rx meds for 2-3 weeks before dx with pancreatitis. Thinking he could make some positive life changes to control his chronic conditions, Derrell stopped all of his Rx medications about 1 month earlier. He hasn't drank EtOH since his last round of pancreatitis. He began feeling sick with abdominal pain after eating breakfast on November 02. Over the next few days, he developed constant periumbilical pain that waxed and waned in severity. It shot straight through to his back. He developed nausea and vomited up bile twice on 11/05/17. He felt hot and feverish and had chills. His states that he wasn't able to sleep. He had one loose stool but denies seeing any blood. His symptoms were consistent to how he felt last February, and he went to [facility] ED for evaluation where pancreatitis was confirmed. His lipase was 5,452. WBC was slightly elevated at 12.1; hgb was high at 17.8. Gap was elevated at 23 and bicarb was low at 14. Glucose was 270. A CT scan of his abdomen showed pancreatitis. He was given IV fentanyl, Zofran, and 1L of NS. The hospitalist service was notified and the patient was admitted to the CCU as an inpatient for treatment of both pancreatitis and DKA. LOS is expected to exceed 2 overnights. Objective Vital signs: Temperature 98.9 F 11/09/17 08:00 Pulse Rate 93 11/09/17 08:00 Respiratory Rate 18 11/09/17 08:00 Blood Pressure 123/74 11/09/17 08:00 Pulse Oximetry 96 11/09/17 08:00 Height/Weight/BMI: Weight 160.2 kg - Constitutional Present: well nourished, well developed - Routine HEENT Exam Eye: Present: EOMI ENT: Present: mucous membranes moist, dentition normal - Routine Respiratory Exam Present: CTA bilaterally. Absent: wheezes - Routine Cardiovascular Exam Present: RRR. Absent: murmur - Routine Abdominal Exam Present: soft, normoactive bowel sounds, non distended. Absent: tenderness - Routine Extremities Exam Present: normal capillary refill - Routine Skin Exam Present: dry, warm - Routine Neurological Exam Present: alert, oriented X3, CN II-XII intact - Routine Lymphatic Exam Lymphatic: Absent: adenopathy - Routine Psychiatric Exam Present: normal affect Hospital Course This is a general summary of the patient's hospital course. For more details refer to the complete medical record. Hospital course: 11/05/17: Admit, inpatient status, to CCU. Pancreatitis: IVF, bowel rest with NPO status, symptom control (Fentanyl, Morphine, Zofran). Trend lipase. Check lipid panel. DKA: Received 1L of IVF in ED. Repeat BMP on arrival to CCU to trend bicarb and gap to decide if he needs to be on insulin gtt and to determine which IVF to order. Check A1c (last one was 7.6% 06/01/17). Assess TSH. Time spent with patient: discharge greater than 30 minutes Discharge Plan - Discharge Disposition Discharge Date: 11/09/17 Disposition: Discharged Home, Self-Care *Condition: Improved Reason For Visit (Visit label in EMR): Pancreatitis,DKA - Discharge Medications *Discharge Medications: New Lisinopril [Prinivil] 10 mg PO DAILY #30 tab Insulin Aspart [NovoLOG] 15 unit SQ WM #3 vial Atorvastatin [Lipitor] 80 mg PO HS #30 tab Insulin Aspart [NovoLOG] 2 - 8 unit SQ SS PRN #3 vial PRN Reason: Hyperglycemia Continue Fenofibrate [Lofibra] 160 mg PO DAILY Metformin [Glucophage] 1,000 mg PO BIDWM Insulin Degludec [Tresiba Flextouch U-200] 66 unit SQ HS Potassium Chloride 10 meq PO DAILY Discontinued Atorvastatin [Lipitor] 10 mg PO HS Losartan Potassium [Cozaar] 25 mg PO DAILY - Discharge Packet/Instructions *Diet: Diabetic, low fat *Activity: increase as tolerated *Pain Management/Treatment: routine *Wound Care: none *Expected Signs/Symptoms: none *Notify Physician if: abdominal pain returns *During Business Hours Contact: Primary care *After Business Hours Contact: ER *Pending Lab/Results: Follow up w/your PCP - Referrals/Follow Up - Patient Handouts - Dismissal Complete Discharge Instructions are:: Complete Physician Narrative - Narrative Attestation Narrative: Date: 11/09/17 Time: 5913
[2017-11-09 14:57] VITALS: BP 128/68; PULSE 80; TEMP 99
== END 2017-11-09 14:20 | disposition home or self-care (01) | DRG 438 ==
LOC: ED 09:23 → CCU 12:45 → SUATTDRO 12:45 → CCU 13:10 → MED 11-08 19:50
PROVIDERS: ADMIT Internal Medicine; ATTEND Family Medicine